=== PATIENT | male | born 1940 | race Two or more races ===

== ENCOUNTER 2024-08-27 13:55 | Inpatient (IN) | payer MEDICARE, MEDICAID, SELFPAY ==
[2024-08-27 13:56] VITALS: BMI 29.5
[2024-08-27 15:09] VITALS: BP 138/76; PULSE 87; RESP 18; TEMP 37.3; O2SAT 99
--- NOTE | 2024-08-27 15:13 | XR_ITS ---
Examination: CT abdomen and pelvis without contrast. Coronal 3-D reconstructions. Sagittal 2-D reconstructions. Date and time of exam:September 06, 2024 1542 hours INDICATIONS: Abdominal pain and dysuria beginning 3 weeks ago COMPARISON: February 10, 2019 CTDI: vol (mGy): 9.88 DLP: (mGycm): 636 Technique: Axial images of the abdomen have been obtained, 3 mm slice thickness Intravenous contrast material has not been administered. Low dose protocols were performed. One or more of the following dose reduction techniques were used; automated exposure control, adjustment of the mA and/or KV according to patient size, use of iterative reconstruction technique. 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
--- NOTE | 2024-08-27 15:13 | PD.EDRME ---
Rapid Medical Screening Exam RME Arrival date/time: 08/27/24 13:55 84-year-old male with history of Parkinson's disease presents to the emergency department complains of dysuria and hematuria with difficulty urinating Chief Complaint: Urogenital-Male Time Seen by Provider: 08/27/24 14:04
[2024-08-27 15:25] LABS: Collection Type, Urine Clean Catch; Squamous Epithelial Cell,Urine 0 /hpf (0-5); WBC,Urine 0 /hpf (0-5)
[2024-08-27 15:43] LABS: RBC,Urine 6690 /hpf (0-3)
[2024-08-27 15:45] LABS: Bilirubin,Urine Negative (Negative); Blood,Urine 3+ (Negative); Color,Urine Dark-Brown (Lt Yel-Yel); Culture Indicated,Urine Not Indicated; Glucose, Urine Negative (Negative); Ketones,Urine Negative (Negative); Leukocyte Esterase,Urine Positive (Negative); Nitrite,Urine Negative (Negative); PH,Urine 6.5 (5.0-7.0); Protein,Urine 2+ (Neg - Trace); Specific Gravity,Urine 1.019 (1.001-1.035); Urobilinogen,Urine Negative mg/dL (0.0-1.0)
[2024-08-27 15:49] LABS: Clarity,Urine Turbid (Clear/Hazy)
[2024-08-27 16:13] VITALS: BP 150/85; PULSE 97; RESP 14; TEMP 37.1; O2SAT 96
[2024-08-27 16:17] LABS: Basophils # (Auto) 0.1 Thou/mm3 (0.0-0.2); Basophils % (Auto) 1 % (0-2.5); Eosinophils # (Auto) 0.1 Thou/mm3 (0.0-0.5); Eosinophils % (Auto) 1 % (0-10); Hematocrit 46.3 % (41.0-53.0); Hemoglobin 16.9 g/dL (13.5-16.0); Immature Granulocytes % (Auto) 0 % (0-0); Immature Granulocytes Auto 0.03 Thou/mm3 (0.00-0.00); Lymphocytes # (Auto) 0.9 Thou/mm3 (1.0-4.8); Lymphocytes % (Auto) 8 % (10-50); Mean Corpuscular HGB Conc 36.5 g/dl (31.0-37.0); Mean Corpuscular Hemoglobin 29.8 pg (25.0-35.0); Mean Corpuscular Volume 82 fL (80-100); Monocytes # (Auto) 0.9 Thou/mm3 (0.0-0.8); Monocytes % (Auto) 9 % (0-12); Neutrophils # (Auto) 8.3 Thou/mm3 (1.8-7.7); Neutrophils % (Auto) 81 % (37-80); Nucleated Red Blood Cell % 0 /100 WBC (0); Platelet Count 291 Thou/mm3 (140-440); RDW Standard Deviation 40.3 fL (35.1-43.9); Red Blood Count 5.67 Miln/mm3 (4.50-5.90); White Blood Count 10.3 Thou/mm3 (3.8-10.6)
[2024-08-27 16:36] LABS: Alanine Aminotransferase 65 U/L (10-49); Albumin, Serum 4.4 gm/dL (3.4-4.8); Albumin/Globulin Ratio 1.2 (1.2-2.2); Alkaline Phosphatase 115 U/L (46-116); Anion Gap 11 (7-16); Aspartate Amino Transferase 36 U/L (0-34); BUN/Creatinine Ratio 14 Ratio (12-20); Bilirubin,Total 1.1 mg/dL (0.3-1.2); Blood Urea Nitrogen 18 mg/dL (9-23); Calcium 9.3 mg/dL (8.3-10.6); Calcium (Corrected) 9.3 mg/dL (8.5-10.1); Carbon Dioxide 26.5 mMol/L (20.0-31.0); Chloride 97 mMol/L (98-107); Creatinine (Component) 1.3 mg/dL (0.6-1.3); Estimated Creatinine Clearance 48.8 mL/min (>60); Globulin 3.6 gm/dL (2.3-3.5); Glucose 121 mg/dL (74-106); INR 1.1 (0.9-1.3); Lipase 34 U/L (12-53); Osmolality,Calculated 271 (275-295); Partial Thromboplastin Time 26.3 Seconds (22.0-36.0); Prothrombin Time 11.9 Seconds (9.0-12.2); Sodium 134 mMol/L (136-145); eGFR 55 See Note
--- NOTE | 2024-08-27 17:07 | EDNOTE_ITS ---
ED Male Genitalurinary RME/HPI General Chief complaint: Urogenital-Male Stated complaint: URINATING BLOOD Time Seen by Provider: 08/27/24 14:04 Arrival date/time: 08/27/24 13:55 RME / HPI RME / HPI Narrative: 08/27/24 13:55 84-year-old male with history of Parkinson's disease presents to the emergency department complains of dysuria and hematuria with difficulty urinating DR. MENDEZ MAIN ED EVALUATION: 84 year old male presents to the Emergency Department accompanied by his with complaint of hematuria onset 2 months and worsening. Symptoms are moderate. Denies any other symptoms at this time. PMHx: Has history of prostate surgery 8 years ago at [facility]. Also, had a CT scan and was told he had x3 hernias. Depression on sertraline but discontinued because he read the medication caused Parkinson's and now takes Trintellix. Parkinson's disease. Social Hx: No tobacco, alcohol, or substance use. Related Data Home Medications ?Medication ?Instructions ?Recorded ?Confirmed buspirone 7.5 mg tablet mg 08/28/24 carbidopa 25 mg-levodopa 100 mg tab 08/28/24 tablet chlorthalidone 25 mg tablet 25 mg PO QDAY 08/28/2403/17 doxazosin 4 mg tablet mg 08/28/24 sertraline 50 mg tablet mg PO Q24H 08/28/24 benztropine 0.5 mg tablet 0.5 mg PO QDAY 08/29/2403/17 Held on 08/29/24. Instructions: per pt held Allergies Allergy/AdvReac Type Severity Reaction Status Date / Time No Known Allergies Allergy Verified 08/27/24 13:55 Review of Systems Review of Systems Systems Reviewed: All systems reviewed, normal except as documented Narrative Review of Systems: GEN: No fever, no chills, no weight loss EYES: No discharge, no visual changes, no pain HEENT: No ear pain, no congestion, no sore throat PULM: No shortness of breath, no cough, no congestion CV: No chest pain, no dyspnea on exertion, no palpitations GI: No nausea, no vomiting, no diarrhea, no pain, no constipation : + hematuria; no frequency, no urgency and no dysuria MUSC/SKEL: No joint pain, no back pain SKIN: No rash PSYCH: No hallucinations, no depression HEME/LYMPH: No easy bleeding or bruising tendencies NEURO: No weakness, no headache Past Medical History Social History SMOKING STATUS: Never smoker SUBSTANCE USE: does not use ALCOHOL: Never ED Exam Narrative Physical exam: GENERAL APPEARANCE: alert and oriented x 4, well-developed, well-nourished, no acute distress; tremulous, history of Parkinson's disease VITALS: All vitals were reviewed and the pulse ox is 96% on room air, which is normal according to my interpretation. HEENT: Normocephalic, atraumatic; pupils equal, round, reactive to light; EOMI; mucous membranes pink, moist; oropharynx clear NECK: Supple LUNGS: CTABL; no wheezes, no rales, no rhonchi HEART: Regular rate, regular rhythm; normal S1, S2; no murmurs ABDOMEN: non distended; normal BS; soft, no tenderness, no guarding, no rebound; no masses, no organomegaly, no hernia BACK: no CVA tenderness EXTREMITIES: atraumatic; no edema NEUROLOGIC: tremulous, history of Parkinson's disease; awake; alert and oriented x4; cranial nerves II-XII grossly intact; no focal sensory or motor deficits PSYCHIATRIC: appropriate mood and affect SKIN: warm, dry, normal color; no rashes Course Quality Measures none Orders Category Date Time Status Patient Condition Routine Admission 08/28/24 02:[address] in Observation Status Routine Admission 08/28/24 02:24 Active Bed to Chair in A.M. Daily Care 08/29/24 09:00 Ordered Continuous Bladder Irrigation QSHIFT Care 08/27/24 16:07 Completed Decision to Admit X1 Care 08/28/24 02:33 Completed Flu & Pneumonia Vaccine Screen ONCE Care 08/28/24 02:25 Completed Phillip [Urinary Catheter] X1 Care 08/27/24 16:42 Active Miscellaneous Nursing Order NOW Care 08/28/24 02:31 Active Notify provider NEEDED Care 08/28/24 02:23 Active Sequential Compression Device QSHIFT Care 08/28/24 02:25 Active Wound Care NOW Care 08/28/24 10:33 Active Diet Regular Diet 08/28/[address] abdomen pelvis wo con Stat Exams 08/27/24 15:13 Completed A1C [Glycohemoglobin w (eAG)] AM DRAW Lab 08/28/24 04:52 Completed CBC AM DRAW Lab 08/28/24 04:52 Completed CBC AM DRAW Lab 08/29/24 05:45 Completed CBC AM DRAW Lab 08/30/24 05:19 Completed CBC Stat Lab 08/27/24 15:57 Completed Comprehensive Metabolic Panel AM DRAW Lab 08/28/24 04:52 Completed Comprehensive Metabolic Panel AM DRAW Lab 08/29/24 05:45 Completed Comprehensive Metabolic Panel AM DRAW Lab 08/30/24 05:19 Completed Comprehensive Metabolic Panel Stat Lab 08/27/24 15:57 Completed Hepatitis Acute Panel Routine Lab 08/28/24 02:30 Completed Lipase Stat Lab 08/27/24 15:57 Completed Magnesium AM DRAW Lab 08/28/24 04:52 Completed Magnesium AM DRAW Lab 08/29/24 05:45 Completed Magnesium AM DRAW Lab 08/30/24 05:19 Completed PT [Prothrombin Time with INR] Stat Lab 08/27/24 15:57 Completed PTT [Partial Thromboplastin Time] Stat Lab 08/27/24 15:57 Completed Phosphorous AM DRAW Lab 08/29/24 05:45 Completed Phosphorous AM DRAW Lab 08/30/24 05:19 Completed Phosphorous AM DRAW Lab 08/31/24 05:00 Ordered Renal Function Panel Routine Lab 08/28/24 14:13 Completed UA, C/S IF [Urinalysis, C/S if Indicated] Stat Lab 08/27/24 15:14 Completed Urine Culture Routine Lab 08/28/24 17:00 Completed Acetaminophen Tab [Tylenol Tab] Med 08/28/24 02:25 Active 650 mg PO Q6H PRN Acetaminophen Tab [Tylenol Tab] Med 08/28/24 02:25 Active 650 mg PO Q6H PRN KCL 10% Liq UDC 15 ML Med 08/27/24 18:56 Discontinued 40 meq PO X1 ONE KCL 10% Liq UDC 15 ML Med 08/28/24 02:29 Discontinued 40 meq PO X1 ONE Ketoconazole Cr 2% [Nizoral Cr 2%] Med 08/28/24 14:15 Active See Dose Instructions TOP QDAY LORazepam [Ativan Inj] Med 08/28/24 00:16 Discontinued 0.5 mg IVP X1 ONE LORazepam [Ativan Inj] Med 08/28/24 02:18 Discontinued 1 mg IVP X1 ONE Magnesium Sulfate 2 GM Ivpb [Magnesium Sulfate Ivpb] Med 08/29/24 08:15 Discontinued 2 gm in 50 ml IV X1 Melatonin Med 08/28/24 21:00 Active 3 mg PO HS Melatonin Med 08/28/24 20:05 Discontinued 5 mg PO HS Morphine Inj Med 08/28/24 02:40 Discontinued 4 mg IVP X1 ONE Ondansetron Inj [Zofran Inj] Med 08/28/24 02:25 Active 4 mg IV Q6H PRN Pantoprazole [Protonix] Med 08/28/24 09:00 Active 40 mg PO QDAY Potassium Chloride [K-Dur] Med 08/28/24 15:00 Discontinued 20 meq PO X1 ONE Potassium Chloride [K-Dur] Med 08/28/24 08:17 Discontinued 40 meq PO X1 ONE Potassium Chloride [K-Dur] Med 08/29/24 08:15 Discontinued 40 meq PO X1 ONE Propranolol HCl [Inderal] Med 08/29/24 11:00 Active 10 mg PO BID Ringers Lactated 1000 ml [Lactated Ringers] 1,000 ml Med 08/28/24 02:30 Discontinued IV 75 mls/hr Sertraline HCl [Zoloft] Med 08/29/24 21:00 Discontinued 50 mg PO HS Sodium Chloride 0.9% 1000 ml [Ns] 1,000 ml Med 08/28/24 01:44 Discontinued IV 999 mls/hr amLODIPine BESYLATE [Norvasc] Med 08/30/24 09:00 Discontinued 5 mg PO QDAY cefTRIAXone [Rocephin] 1,000 mg Med 08/28/24 21:00 Discontinued SODIUM CHLORIDE 0.9% (Popper) [Ns 0.9% (P)] 50 ml IV QPM cefTRIAXone [Rocephin] 1,000 mg Med 08/28/24 02:45 Discontinued SODIUM CHLORIDE 0.9% (Popper) [Ns 0.9% (P)] 50 ml IV X1 hydrALAZINE INJ [Apresoline Inj] Med 08/28/24 03:23 Active 10 mg IV Q2H PRN oxyCODONE/APAP 5/325 [Percocet 5/325] Med 08/28/24 02:25 Active 1 tab PO Q6H PRN Code Status Routine Oth 08/28/24 02:23 Ordered Oxygen Delivery PRN RT 08/28/24 02:25 Active Vital Signs Vital signs: Vital Signs Temperature 99.2 F 08/27/24 15:09 Pulse Rate 87 08/27/24 15:09 Respiratory Rate 18 08/27/24 15:09 Blood Pressure 138/76 H 08/27/24 15:09 Pulse Oximetry (%) 99 08/27/24 15:09 Oxygen Delivery Method Room Air 08/27/24 15:09 Urogenital - Male MDM Narrative MDM Narrative:: I, Pilar Cabrera, am scribing for and in the presence of Dr. Mendez. Patient data External records reviewed:: None (no previous visits) Clinical information provided by:: patient Social determinants that could affect healthcare access:: none Patient has the following chronic illnesses:: Has history of prostate surgery 8 years ago at [facility]. Also, had a CT scan and was told he had x3 hernias. Depression on sertraline but discontinued because he read the medication caused Parkinson's and now takes Trintellix. Parkinson's disease. How is presenting disease/condition affected by chronic disease/condition?: exacerbated by Evaluation data The following diagnostics were reviewed and interpreted by me:: lab results and radiology exam(s) Lab and/or radiology exams considered but not ordered:: none Interpretation Summary: Procedure(s): CT abdomen pelvis wo [facility] Accession Number(s): [id number] cc: Osmar (KING),Yvan MALIK; Tristen Dudley MD~ Examination: CT abdomen and pelvis without contrast. Coronal 3-D reconstructions. Sagittal 2-D reconstructions. Date and time of exam:September 06, 2024 1542 hours INDICATIONS: Abdominal pain and dysuria beginning 3 weeks ago COMPARISON: February 10, 2019 CTDI: vol (mGy): 9.88 DLP: (mGycm): 636 Technique: Axial images of the abdomen have been obtained, 3 mm slice thickness Intravenous contrast material has not been administered. Low dose protocols were performed. One or more of the following dose reduction techniques were used; automated exposure control, adjustment of the mA and/or KV according to patient size, use of iterative reconstruction technique. 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 Dictated By: Tristen Dudley MD Medications / Prescriptions Medications or Prescriptions considered but not ordered:: none Medication administrations:: Medication Administration History Acetaminophen (Acetaminophen 325 Mg Tablet) 650 mg PO Q6H PRN PRN Reason: Fever >101.5 Stop: 09/27/24 02:24 Acetaminophen (Acetaminophen 325 Mg Tablet) 650 mg PO Q6H PRN PRN Reason: PAIN SCALE 1-3 (mild Stop: 09/27/24 02:24 Finasteride (Finasteride 5 Mg Tablet) 5 mg PO QDAY [facility] Stop: 09/29/24 13:29 Last Admin: 08/30/24 14:34 Dose: 5 mg Documented By: TD Hydralazine HCl (Hydralazine Inj 20 Mg/Ml Vial) 10 mg IV Q2H PRN PRN Reason: SBP > 180mmHg Stop: 09/27/24 03:29 Ketoconazole (Ketoconazole Cr 2% 15 Gm Tube) 0 gm TOP QDAY [facility] Stop: 09/27/24 14:14 Last Admin: 08/30/24 08:41 Dose: 1 applicatio Documented By: Admin: 08/29/24 08:54 Dose: 1 applicatio Documented By: Admin: 08/28/24 17:51 Dose: 1 applicatio Documented By: LH Melatonin (Melatonin 3 Mg Tablet) 3 mg PO HS [facility] Stop: 09/27/24 20:59 Last Admin: 08/29/24 20:29 Dose: 3 mg Documented By: Admin: 08/28/24 23:02 Dose: 3 mg Documented By: RB Ondansetron HCl (Ondansetron Inj 2 Mg/Ml Inj 2 Ml) 4 mg IV Q6H PRN; Protocol PRN Reason: NAUSEA OR VOMITING Stop: 09/27/24 02:24 Oxycodone/Acetaminophen (Oxycodone/Apap 5/325 Tablet) 1 tab PO Q6H PRN PRN Reason: PAIN SCALE 4-6 (Moderate Stop: 09/02/24 02:24 Last Admin: 08/30/24 00:08 Dose: 1 tab Documented By: Admin: 08/28/24 23:02 Dose: 1 tab Documented By: RB Pantoprazole Sodium (Pantoprazole 40 Mg Tablet) 40 mg PO QDAY ANNAMARIE Stop: 09/27/24 08:59 Last Admin: 08/30/24 08:40 Dose: 40 mg Documented By: Admin: 08/29/24 08:53 Dose: 40 mg Documented By: Admin: 08/28/24 10:54 Dose: 40 mg Documented By: LH Propranolol HCl (Propranolol 10 Mg Tablet) 10 mg PO BID ANNAMARIE Stop: 09/28/24 10:59 Last Admin: 08/30/24 08:40 Dose: 10 mg Documented By: Admin: 08/29/24 20:29 Dose: 10 mg Documented By: Admin: 08/29/24 14:40 Dose: 10 mg Documented By: LT Quetiapine Fumarate (Quetiapine Fumarate 25 Mg Tablet) 12.5 mg PO HS ANNAMARIE Stop: 09/29/24 20:59 Sertraline HCl (Sertraline Hcl 25 Mg Tablet) 50 mg PO QDAY ANNAMARIE Stop: 09/29/24 08:59 Last Admin: 08/30/24 08:40 Dose: 50 mg Documented By: TD Tamsulosin HCl (Tamsulosin Hcl 0.4 Mg Capsule) 0.4 mg PO QDAY ANNAMARIE Stop: 09/29/24 15:14 Last Admin: 08/30/24 15:39 Dose: 0.4 mg Documented By: TD Discontinued Medications Amlodipine Besylate (Amlodipine Besylate 5 Mg Tablet) 5 mg PO QDAY ANNAMARIE Stop: 09/29/24 08:59 Sodium Chloride (Ns) 1,000 mls @ 999 mls/hr IV .Q1H1M ONE Stop: 08/28/24 02:44 Last Infusion: 08/28/24 03:23 Dose: Infused Documented By: Admin: 08/28/24 02:25 Dose: 999 mls/hr Documented By: CB Lactated Ringer's (Lactated Ringers) 1,000 mls @ 75 mls/hr IV .[id number] ONE Stop: 08/28/24 15:49 Last Admin: 08/28/24 02:57 Dose: 75 mls/hr Documented By: GLORIA Ceftriaxone Sodium 1,000 mg/ (Sodium Chloride) 50 mls @ 100 mls/hr IV QPM ANNAMARIE Stop: 09/04/24 20:59 Last Admin: 08/29/24 20:28 Dose: 100 mls/hr Documented By: Infusion: 08/28/24 20:49 Dose: Infused Documented By: Admin: 08/28/24 20:19 Dose: 100 mls/hr Documented By: RB Ceftriaxone Sodium 1,000 mg/ (Sodium Chloride) 50 mls @ 100 mls/hr IV X1 ONE Stop: 08/28/24 03:14 Last Infusion: 08/28/24 04:59 Dose: Infused Documented By: Admin: 08/28/24 03:48 Dose: 100 mls/hr Documented By: GLORIA Magnesium Sulfate (Magnesium Sulfate Ivpb) 2 gm in 50 mls @ 25 mls/hr IV X1 ONE Stop: 08/29/24 10:14 Last Admin: 08/29/24 08:52 Dose: 25 mls/hr Documented By: Lorazepam (Lorazepam 2 Mg/Ml Vial) 0.5 mg IVP X1 ONE Stop: 08/28/24 00:17 Last Admin: 08/28/24 00:21 Dose: 0.5 mg Documented By: GLORIA Lorazepam (Lorazepam 2 Mg/Ml Vial) 1 mg IVP X1 ONE Stop: 08/28/24 02:19 Last Admin: 08/28/24 02:26 Dose: 1 mg Documented By: CB Melatonin (Melatonin 3 Mg Tablet) 5 mg PO HS [facility] Stop: 09/27/24 20:04 Morphine Sulfate (Morphine Sulf Inj 10 Mg/Ml Vial) 4 mg IVP X1 ONE Stop: 08/28/24 02:41 Last Admin: 08/28/24 02:57 Dose: 4 mg Documented By: KD Potassium Chloride (Potassium Chloride 10% 20 Meq/15 Ml Udc) 40 meq PO X1 ONE Stop: 08/27/24 18:57 Last Admin: 08/27/24 19:28 Dose: 40 meq Documented By: KD Potassium Chloride (Potassium Chloride 10% 20 Meq/15 Ml Udc) 40 meq PO X1 ONE Stop: 08/28/24 02:30 Last Admin: 08/28/24 02:58 Dose: 40 meq Documented By: KD Potassium Chloride (Potassium Chloride 20 Meq Tabcr) 40 meq PO X1 ONE Stop: 08/28/24 08:18 Last Admin: 08/28/24 10:54 Dose: 40 meq Documented By: LH Potassium Chloride (Potassium Chloride 20 Meq Tabcr) 20 meq PO X1 ONE Stop: 08/28/24 15:01 Last Admin: 08/28/24 14:55 Dose: 20 meq Documented By: LH Potassium Chloride (Potassium Chloride 20 Meq Tabcr) 40 meq PO X1 ONE Stop: 08/29/24 08:16 Last Admin: 08/29/24 08:53 Dose: 40 meq Documented By: LT Potassium Chloride (Potassium Chloride 20 Meq Tabcr) 40 meq PO X1 ONE Stop: 08/30/24 08:28 Last Admin: 08/30/24 08:39 Dose: 40 meq Documented By: TD Sertraline HCl (Sertraline Hcl 25 Mg Tablet) 50 mg PO HS ANNAMARIE Stop: 09/28/24 20:59 see above Consultations Consultation(s) initiated? (list below): No Diagnosis Urogenital Male Differential Diagnosis: urinary tract infection and other (hematuria, surgery complications) Most likely diagnosis given after review of the tests above:: No final disposition plan at this time, still pending diagnostic tests. Patient signout to the shift superintendent caustic cresylate provider. Admission Indicated Admission indicated?: not indicated Admission Request Was there a request for admission?: No Disposition Plan Disposition Plan: other (specify) (Patient signout to the shift superintendent caustic cresylate provider. ) Discharge Plan Plan Patient Disposition: Other Care w/in Hosp ([facility]) Problem List Clinical Impression: Hematuria of unknown etiology, Hypokalemia
[2024-08-27 18:05] VITALS: BP 124/77; PULSE 85; RESP 15; TEMP 36.9; O2SAT 98
--- NOTE | 2024-08-27 18:13 | PD.EDADDENDU ---
Emergency Room Addendum <Lianne Guadarrama - Last Filed: 08/28/24 00:37> Addendum Narrative: I took over the care from Dr. Mendez at 6 PM on 08/27/2024, see her notes for complete H&P and ED course. I reviewed all diagnostic test results. At this point, diagnoses include Treatment here included Significant improvemeny 2321: Spoke with [facility]. Awaiting callback at this time. 0028: Spoke with Dr. Castro, urologist from [facility]. Recommends Based on my best medical judgment, made decision no further evaluation or treatment indicated at this time. Patient understands and agrees to the discharge instructions customized and printed, see below. <Bob Perez MD - Last Filed: 08/28/24 02:46> Addendum Narrative: I took over the care from Dr. Mendez at 6 PM on 08/27/2024, see her notes for complete H&P and ED course. I reviewed all diagnostic test results. My review of the abdominal CT report is no acute findings. Blood tests and urine tests unremarkable, except K 3.0 and severe hematuria. At this point, diagnoses include: Severe hematuria and hypokalemia. Treatment here included: IVF, CBI, KCl. Gross hematuria not improved. 2321: Spoke with [facility]. Awaiting callback at this time. 0028: Spoke with Dr. Castro, urologist from [facility]. Discussed about the presentation and exam and diagnostics and treatments here.? And need of further care in there.? Declined to accept the patient. Recommended admission here for 48 hour CBI. If still not better, he will accept the patient. I discussed the case with our hospitalist.? About the presentation and exam and diagnostics and treatments here.? And need of further care in the hospital.? Will accept the patient. Patient requested help with sleep and pain. Ativan and morphine given.
[2024-08-27] MEDS: POTASSIUM CHLORIDE 10% 20 MEQ/15 ML UDC 40 MEQ PO (19:28)
[2024-08-27 22:00] VITALS: BP 124/74; PULSE 74; RESP 9; O2SAT 96
[2024-08-27 22:10] VITALS: BP 124/74; PULSE 75; RESP 15; TEMP 36.8; O2SAT 95
[2024-08-27 23:01] VITALS: BP 112/62; PULSE 75; RESP 14; O2SAT 96
[2024-08-28] VITALS (16 sets, daily range): BP systolic 104–146; BP diastolic 49–78; PULSE 68–92; RESP 0–94; TEMP 36.2–37.3; O2SAT 79–100
[2024-08-28] MEDS: LORazepam 2 MG/ML VIAL 0.5 MG IVP (00:21)
--- NOTE | 2024-08-28 01:27 | PC.LAC ---
[facility] CONTACTED DENIED NO NEUROLOGY HEADEND TECHNICIAN. [facility]. 0028 [facility] DENIES PT AT THIS TIME. REASON GIVEN TO DR LUEVANO. 0120 [facility] CONTACTED PKT SENT. [facility] REQUESTING WE CONTINUE TO TRY OTHER HOSPITALS. STATE THEY ARE CASE BY CASE AT THIS TIME.
[2024-08-28] MEDS: SODIUM CHLORIDE 0.9% 1000 ML 1,000 ML 999 ML IV (02:25)
[2024-08-28] MEDS: LORazepam 2 MG/ML VIAL 1 MG IVP (02:26)
--- NOTE | 2024-08-28 02:55 | ESHP_ITS ---
Documentation for date of: 08/28/24 HPI History of Present Illness Chief complaint: Hematuria for 2-month History of present illness: HPI: An 84-year-old male patient known case of hypertension, Parkinson's disease, depression, BPH status post surgical intervention 15 years ago presented to the ED due to progressively worsening hematuria. Patient reported that he noticed blood in his urine 2 months. He mentions that it was trace of blood in his urine however it continued to worsen over time until it become frankly blood associated with clots. Patient reported that he has some mild pain whenever he passes blood through his urethra. Patient denied any nausea, vomiting, fever, or abdominal pain. Patient denied any loss of weight. He reported that he has not seen a urologist since his prostate procedures 15 years ago. However he reported that he has seen his primary care physician 1 month ago. Home medications: Pending med ED course: His vitals were stable with blood pressure of 138/76 and normal other vital signs. His hemoglobin is 16.9, WBC borderline at 10.3, platelets 291, PTT and PT within normal limits, potassium was significantly low at 3.0 and sodium was 134, his serum creatinine is 1.3 and there was no previous serum creatinine results to compare, his EGFR is 55. His blood glucose of 121, noticed to have AST and ALT of 36 and 65 respectively normal alk phos and total bilirubin, his urine was positive to protein, +3 urine in the blood with urine RBCs of 6690/hpf. Continuous bladder irrigation was initiated by the ED team, they consulted Dr. Castro and [facility] in [place] and she recommended continue continuous bladder irrigation for 48 hours if his symptoms improve patient can be discharged home and follow-up in outpatient settings, if his hematuria did not improve patient will be transferred to Dr. Castro to [facility] in [place] and he mentioned that he will accept the patient PMH: As above Social hx: Alcohol: Denied Tobacco: Denied Illicit drugs: Denied Allergies: No known allergies Review of Systems Review of Systems Systems Reviewed: All systems reviewed, normal except as documented Exam Vital Signs Temp Pulse Resp BP Pulse Ox O2 Del Method 98.4 F 78 18 137/78 H 95 Room Air 08/28/24 01:27 08/28/24 01:27 08/28/24 01:27 08/28/24 01:27 08/28/24 01:27 08/28/24 01:27 Narrative Exam GEN: AOx3, Luxembourgish speaker, able to speak full sentences, with urinal bag pink in color, three-way's catheter with continuous bladder irrigation functioning HEENT: NC/AC, oral mucosa moist, neck supple CVS: RRR, systolic murmur was heard, muffled S1-S2 present, no murmurs appreciated RESP: CTAB GI: soft,non distended, non tender, NBS MSK: able to move all 4 limbs, no lower extremity edema SKIN: warm and dry ROLLED HAM LACER: CN II-XII and Sensation grossly intact. Results: Labs 08/28/24 04:52 08/28/24 04:52 Labs: Short CBC 08/27/24 Range/Units 15:57 WBC 10.3 (3.8-10.6) Thou/mm3 Hgb 16.9 H (13.5-16.0) g/dL Hct 46.3 (41.0-53.0) % Plt Count 291 (140-440) Thou/mm3 BMP 08/27/24 15:57 Sodium 134 L Potassium 3.0 L Chloride 97 L Carbon Dioxide 26.5 BUN 18 Creatinine 1.3 Glucose 121 H Calcium 9.3 Liver Function 08/27/24 Range/Units 15:57 Total Bilirubin 1.1 (0.3-1.2) mg/dL AST 36 H (0-34) U/L ALT 65 H (10-49) U/L Alkaline Phosphatase 115 (46-116) U/L Albumin 4.4 (3.4-4.8) gm/dL Urine 08/27/24 Range/Units 15:14 Urine Color Dark-Brown (Lt Yel-Yel) Urine Clarity Turbid A (Clear/Hazy) Urine pH 6.5 (5.0-7.0) Ur Specific [place] 1.019 (1.001-1.035) Urine Protein 2+ A (Neg - Trace) Urine Glucose (UA) Negative (Negative) Quality Measures Quality Measures none Advance care planning discussed with:: patient Medications Home Medications and Allergies Allergies Allergy/AdvReac Type Severity Reaction Status Date / Time No Known Allergies Allergy Verified 08/27/24 13:55 Visit Medications Acetaminophen (Acetaminophen 325 Mg Tablet) 650 mg PO Q6H PRN PRN Reason: Fever >101.5 Stop: 09/27/24 02:24 Acetaminophen (Acetaminophen 325 Mg Tablet) 650 mg PO Q6H PRN PRN Reason: PAIN SCALE 1-3 (mild Stop: 09/27/24 02:24 Lactated Ringer's (Lactated Ringers) 1,000 mls @ 75 mls/hr IV .[id number] ONE Stop: 08/28/24 15:49 Ceftriaxone Sodium 1,000 mg/ (Sodium Chloride) 50 mls @ 100 mls/hr IV QDAY ANNAMARIE Stop: 09/04/24 02:28 Ceftriaxone Sodium 1,000 mg/ (Sodium Chloride) 50 mls @ 100 mls/hr IV X1 ONE Stop: 08/28/24 03:14 Ondansetron HCl (Ondansetron Inj 2 Mg/Ml Inj 2 Ml) 4 mg IV Q6H PRN; Protocol PRN Reason: NAUSEA OR VOMITING Stop: 09/27/24 02:24 Oxycodone/Acetaminophen (Oxycodone/Apap 5/325 Tablet) 1 tab PO Q6H PRN PRN Reason: PAIN SCALE 4-6 (Moderate Stop: 09/02/24 02:24 Discontinued Medications Sodium Chloride (Ns) 1,000 mls @ 999 mls/hr IV .[id number] ONE Stop: 08/28/24 02:44 Last Admin: 08/28/24 02:25 Dose: 999 mls/hr Lorazepam (Lorazepam 2 Mg/Ml Vial) 0.5 mg IVP X1 ONE Stop: 08/28/24 00:17 Last Admin: 08/28/24 00:21 Dose: 0.5 mg Lorazepam (Lorazepam 2 Mg/Ml Vial) 1 mg IVP X1 ONE Stop: 08/28/24 02:19 Last Admin: 08/28/24 02:26 Dose: 1 mg Morphine Sulfate (Morphine Sulf Inj 10 Mg/Ml Vial) 4 mg IVP X1 ONE Stop: 08/28/24 02:41 Potassium Chloride (Potassium Chloride 10% 20 Meq/15 Ml Udc) 40 meq PO X1 ONE Stop: 08/27/24 18:57 Last Admin: 08/27/24 19:28 Dose: 40 meq Potassium Chloride (Potassium Chloride 10% 20 Meq/15 Ml Udc) 40 meq PO X1 ONE Stop: 08/28/24 02:30 Assessment & Plan Plan Summary: An 84-year-old male patient known case of hypertension, Parkinson's disease, depression, BPH status post surgical intervention 15 years ago presented to the ED due to progressively worsening hematuria. Patient reported that he noticed blood in his urine 2 months. Patient was admitted for severe hematuria. Assessment and plan #Hematuria #History of BPH #UTI #Urinary bladder cancer rule out Patient vital stable, hemoglobin stable at 16.7, WBC borderline at 10.2, no fever or chills however CT scan showed perinephric stranding and urinary bladder wall thickened Patient has been having hematuria for the past 2 months associated with clots, hemoglobin stable. Plan ? Admit to MedSurg ? Consider consulting in-house urology ? start the patient on ceftriaxone ? Continue CBI ? Pain management as per protocol ? Consider resuming his BPH medications upon discharge and removal of the catheter #Hypokalemia On presentation patient potassium level was 3.0, he was given 1 dose of 40 mill equivalent of potassium p.o. Plan ? Replete potassium with another dose of 40 mEq of potassium p.o. ? Daily BMP #Elevated liver enzymes Patient was noticed to have elevated AST and ALT 36 and 65 respectively, CT scan did not show on the liver lesion or irregularity on liver contour Alk phos and total bilirubin are within normal limits Plan ? Acute hepatitis panel was ordered follow-up in #History of Parkinson's disease Plan ? Resume his home medications after med rec is done #History of hypertension Plan ? Resume home medication after med reconciliation is done ? Start the patient on hydralazine 10 mg IV as needed every 2 hours if SBP more than 180 mmHg #History of depression Plan ? Resume home medication upon med reconciliation Hospital Maintenance: FEN: Regular diet DVT ppx: SCD GI ppx: Protonix IV lines: PIV Phillip: Yes Code status: Full code Dispo: MedSurg - Patient's plan and care discussed with my attending, Dr. Charles Hillman MD Internal Medicine PGY-2 Attending Provider Attestation/Addendum 85-year-old male with multiple comorbidities including hypertension, BPH status post surgical intervention/TURP who presented to the ER with hematuria. Patient states that he has been having hematuria that has been going on and off for the past 2 months however past couple days has been noting [place] blood with clots and subsequently prompted an ER visit. Furthermore, ER physician attempted to transfer the patient to [facility] however did not recommend transfer and recommended patient to be admitted to our facility with continuous bladder irrigation and if patient was to worsen then at that point they agreed to take the patient. As a result, plan to start continuous bladder irrigation and admit the patient to our facility. Of note, hemoglobin stable at this point. Unknown causes of hematuria however patient denies being on anticoagulation and could be having an underlying malignancy.I reviewed above note and agree with findings and plans. I have also personally examined the patient with medicine team and went over assessment and plan with medical team including record label intern and resident physician.
[2024-08-28] MEDS: MORPHINE SULF INJ 10 MG/ML VIAL 4 MG IVP (02:57)
[2024-08-28] MEDS: RINGERS LACTATED 1000 ML 1,000 ML 75 ML IV (02:57)
[2024-08-28] MEDS: POTASSIUM CHLORIDE 10% 20 MEQ/15 ML UDC 40 MEQ PO (02:58)
[2024-08-28] MEDS: cefTRIAXone 1,000 MG in SODIUM CHLORIDE 0.9% (Popper) 50 ML 100 MG IV ×2 (03:48→20:19)
[2024-08-28 04:57] LABS: Basophils # (Auto) 0.1 Thou/mm3 (0.0-0.2); Basophils % (Auto) 0 % (0-2.5); Eosinophils # (Auto) 0.1 Thou/mm3 (0.0-0.5); Eosinophils % (Auto) 1 % (0-10); Hematocrit 42.2 % (41.0-53.0); Hemoglobin 15.1 g/dL (13.5-16.0); Immature Granulocytes % (Auto) 0 % (0-0); Immature Granulocytes Auto 0.03 Thou/mm3 (0.00-0.00); Lymphocytes # (Auto) 1.1 Thou/mm3 (1.0-4.8); Lymphocytes % (Auto) 9 % (10-50); Mean Corpuscular HGB Conc 35.8 g/dl (31.0-37.0); Mean Corpuscular Hemoglobin 29.6 pg (25.0-35.0); Mean Corpuscular Volume 83 fL (80-100); Monocytes # (Auto) 1.1 Thou/mm3 (0.0-0.8); Monocytes % (Auto) 9 % (0-12); Neutrophils # (Auto) 9.8 Thou/mm3 (1.8-7.7); Neutrophils % (Auto) 81 % (37-80); Nucleated Red Blood Cell % 0 /100 WBC (0); Platelet Count 242 Thou/mm3 (140-440); RDW Standard Deviation 41.9 fL (35.1-43.9); White Blood Count 12.2 Thou/mm3 (3.8-10.6)
[2024-08-28 05:15] LABS: Glucose Estimated Average 111 mg/dL (80-131); Hemoglobin A1C 5.5 % Hgb (4.8-6.0)
[2024-08-28 05:28] LABS: Alanine Aminotransferase 54 U/L (10-49); Albumin, Serum 3.8 gm/dL (3.4-4.8); Albumin/Globulin Ratio 1.2 (1.2-2.2); Alkaline Phosphatase 103 U/L (46-116); Anion Gap 7 (7-16); Aspartate Amino Transferase 23 U/L (0-34); BUN/Creatinine Ratio 14 Ratio (12-20); Bilirubin,Total 1.3 mg/dL (0.3-1.2); Blood Urea Nitrogen 14 mg/dL (9-23); Calcium (Corrected) 9.2 mg/dL (8.5-10.1); Carbon Dioxide 28.9 mMol/L (20.0-31.0); Chloride 102 mMol/L (98-107); Estimated Creatinine Clearance 63.4 mL/min (>60); Globulin 3.1 gm/dL (2.3-3.5); Glucose 122 mg/dL (74-106); Magnesium 1.9 mg/dL (1.6-2.6); Osmolality,Calculated 277 (275-295); Potassium 2.9 mMol/L (3.4-5.1); Sodium 138 mMol/L (136-145); Total Protein 6.9 gm/dL (5.7-8.2); eGFR > 60 See Note
--- NOTE | 2024-08-28 08:19 | PC.NURSE ---
REPORT GIVEN TO JORGE SHEA ON MED SURG. ALL QUESTIONS ANSWERED.
[2024-08-28] MEDS: POTASSIUM CHLORIDE 20 mEq TABCR 40 MEQ PO (10:54)
[2024-08-28] MEDS: PANTOPRAZOLE 40 MG TABLET PO (10:54)
--- NOTE | 2024-08-28 13:52 | PD.RESPRO ---
Documentation for date of: 08/28/24 Subjective Subjective Interval history: No overnight events. Patient seen and examined at bedside. Patient resting comfortably, has moderate tremors, baseline for patient. Patient endorses anxiety. Denies fever, chills, weakness, fatigue, dysuria, abdominal pain. Patient notes he has had poor appetite for several months, states he is recently lost 30 pounds unintentionally. Continue bladder irrigation. Wound care for fungal infection bilateral feet. Resume appropriate home meds pending med rec's. Exam Vital Signs Temp Pulse Resp BP Pulse Ox O2 Del Method 97.1 F 84 18 146/77 H 93 L Room Air 08/28/24 11:48 08/28/24 12:48 08/28/24 11:48 08/28/24 11:48 08/28/24 11:48 08/28/24 11:48 Narrative Exam PE: Gen: Well-developed and well-nourished. HEENT: NCAT, PERRLA, EOMI, MMM, anicteric conjunctivae. CVS: normal S1 and S2. RRR. No M/R/G. Resp: CTA B/L. No rhonchi, rales, crackles or wheezing. Abd: soft, non-tender, non-distended. Small umbilical hernia. MSK: Good ROM in BUE & BLE. No edema or rash. 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 Soles of bilateral feet peeling with fungal infection, worse on the left. Neuro: CN II-XII grossly intact. Strength 5/5 in BUE & BLE. Alert and oriented x3. Moderate tremors bilateral hands. Tongue fasciculations. Twitching of mouth. Psych: appropriate mood and affect. Objective Labs 08/28/24 04:52 08/28/24 14:13 Labs: Laboratory Results - last 24 hr 08/27/24 08/27/24 08/28/24 15:14 15:57 04:52 WBC 10.3 12.2 H RBC 5.67 5.10 Hgb 16.9 H 15.1 Hct 46.3 42.2 MCV 82 83 MCH 29.8 29.6 MCHC 36.5 35.8 RDW Std Deviation 40.3 41.9 Plt Count 291 242 D Neut % (Auto) 81 H 81 H Lymph % (Auto) 8 L 9 L [place] % (Auto) 9 9 Eos % (Auto) 1 1 Baso % (Auto) 1 0 Neut # (Auto) 8.3 H 9.8 H Lymph # (Auto) 0.9 L 1.1 [place] # (Auto) 0.9 H 1.1 H Eos # (Auto) 0.1 0.1 Baso # (Auto) 0.1 0.1 Immature Gran # (Auto) 0.03 H 0.03 H Absolute Nucleated RBC 0.00 0.00 Immature Gran % 0 0 Nucleated RBC % 0 0 PT 11.9 INR 1.1 APTT 26.3 Sodium 134 L 138 Potassium 3.0 L 2.9 L Chloride 97 L 102 Carbon Dioxide 26.5 28.9 Anion Gap 11 7 BUN 18 14 Creatinine 1.3 1.0 Estim Creat Clear Calc 48.8 L 63.4 eGFR 55 L > 60 BUN/Creatinine Ratio 14 14 Glucose [address] Glu mg/dL 111 Hemoglobin A1c 5.5 Calculated Osmolality 271 L 277 Calcium 9.3 9.0 Corrected Calcium 9.3 9.2 Magnesium 1.9 Total Bilirubin 1.1 1.3 H AST 36 H 23 ALT 65 H 54 H Alkaline Phosphatase 115 103 Total Protein 8.0 6.9 Albumin 4.4 3.8 D Globulin 3.6 H 3.1 Albumin/Globulin Ratio 1.2 1.2 Lipase 34 Ur Collection Type Clean Catch Urine Color Dark-Brown Urine Clarity Turbid A Urine pH 6.5 Ur Specific [place] 1.019 Urine Protein 2+ A Urine Glucose (UA) Negative Urine Ketones Negative Urine Blood 3+ A Urine Nitrite Negative Urine Bilirubin Negative Urine Urobilinogen (Auto) Negative Ur Leukocyte Esterase Positive Urine RBC 6690 H Urine WBC 0 Ur Squamous Epith Cells 0 Urine Bacteria None Ur Culture Indicated? Not Indicated Quality Measures Quality Measures VTE prophylaxis Advance care planning discussed with:: patient, spouse and other (Son-in-law) Assessment & Plan Assessment Current Active Medications: Generic Name Dose Route Start Last Admin Trade Name Freq PRN Reason Stop Dose Admin Acetaminophen 650 mg 08/28/24 02:25 Acetaminophen 325 Mg Tablet PO 09/27/24 02:24 Q6H PRN Fever >101.5 Acetaminophen 650 mg 08/28/24 02:25 Acetaminophen 325 Mg Tablet PO 09/27/24 02:24 Q6H PRN PAIN SCALE 1-3 (mild Hydralazine HCl 10 mg 08/28/24 03:23 Hydralazine Inj 20 Mg/Ml Vial IV 09/27/24 03:29 Q2H PRN SBP > 180mmHg Lactated Ringer's 1,000 mls @ 75 mls/hr 08/28/24 02:30 08/28/24 02:57 Lactated Ringers IV 08/28/24 15:49 75 mls/hr .[id number] ONE Administration Ceftriaxone Sodium 1,000 mg/ 50 mls @ 100 mls/hr 08/28/24 21:00 Sodium Chloride IV 09/04/24 20:59 QPM ANNAMARIE Ondansetron HCl 4 mg 08/28/24 02:25 Ondansetron Inj 2 Mg/Ml Inj 2 Ml IV 09/27/24 02:24 Q6H PRN NAUSEA OR VOMITING Protocol Oxycodone/Acetaminophen 1 tab 08/28/24 02:25 Oxycodone/Apap 5/325 Tablet PO 09/02/24 02:24 Q6H PRN PAIN SCALE 4-6 (Moderate Pantoprazole Sodium 40 mg 08/28/24 09:00 08/28/24 10:54 Pantoprazole 40 Mg Tablet PO 09/27/24 08:59 40 mg QDAY ANNAMARIE Administration Plan 84-year-old male patient known case of hypertension, Parkinson's disease, 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 Patient reported that he noticed blood in his urine 2 months. Patient was admitted for severe hematuria. #Hematuria #BPH s/p TURP #Urinary bladder cancer rule out Patient vital stable, hemoglobin stable at 16.7, WBC borderline at 10.2, no fever or chills however CT scan showed perinephric stranding and urinary bladder wall thickened. Patient has been having hematuria for the past 2 months, getting progressively worse and eventually developing clots, hemoglobin stable. Patient endorses pain to urination only when passing a clot. No suprapubic tenderness/distention. Contacted Dr. Castro neurologist with [facility] in [place], recommended admit patient for 48 hours about irrigation. If hematuria does not resolve by then, states. He also transferred to [place] for further inpatient management. If hematuria resolves within 48 hours, may discharge patient for outpatient neurology follow-up. -Admit to [facility] -Consult in-house urology on Friday -Ceftriaxone 1 g IV daily -Urine culture pending, follow-up -Continue CBI -Pain management as per protocol -Consider resuming his BPH medications upon discharge and removal of the catheter #Hypokalemia On presentation patient potassium level was 3.0, he was given 1 dose of 40 mEq of potassium p.o. Repleted potassium with another dose of 40 mEq of potassium p.o. -Daily BMP -Replete as needed #Transaminitis Patient was noticed to have elevated AST and ALT 36 and 65 respectively, CT scan did not show on the liver lesion or irregularity on liver contour Alk phos and total bilirubin are within normal limits -Acute hepatitis panel, follow-up #Bilateral tinea pedis Patient has fungal growth with skin peeling on bilateral soles of feet. Patient states that due to his depression he has not changed his socks for at least 2 weeks. Patient and family are unaware of infection. Patient does not complain of pain in the feet. -Wound care -Ketoconazole cream #Parkinson's disease Patient recently diagnosed with Parkinson's disease. Patient does take outpatient medications, claims that the side effects are so severe he prefers to do with the tremors. On exam patient has moderate bilateral hand tremors, tongue fasciculations, mouth twitch. -Consider resuming home meds following med reconciliation #Hypertension Patient history as stated. -Resume home medication after med reconciliation is done -Hydralazine 10 mg IV as needed every 2 hours if SBP more than 180 mmHg #History of depression Patient history as stated. Patient reports feeling anxious and also depressed at this time. -Resume home medication upon med reconciliation DVT prophylaxis: SCDs GI prophylaxis: Protonix Diet: Regular Lines: Peripheral IV, three-way catheter Code status: Full code Plan of care discussed with attending Dr. Pandey. Isacc Ames MD PGY?1 Attending Provider Attestation/Addendum Starr Patel, , attest that I was physically present for the kearney portions of the service and evaluated the patient with the resident and I reviewed and discussed the case with the resident and agree with the resident's findings and plans of care as documented above Patient seen and evaluated this AM. Patient has a three way catheter with CBI due to hematuria. Urine is now pink tinged. Patient states that he has had ongoing hematuria and pending urology evaluation outpatient. However, his symptoms worsened yesterday when he was trying to void a clot. Patient states that he is a Orthodox and cannot have any blood transfusions. He is otherwise a full code. Patient states that he does not wish to take his Parkinson's medications due to hallucinations. Will start patient on flomax. he is noted to have significant prostatomegaly on CT abd/pelvis. Will continue [facility] CBI and current management. Will f/u with urine cultures.
[2024-08-28 14:50] LABS: Albumin, Serum 3.9 gm/dL (3.4-4.8); Anion Gap 6 (7-16); BUN/Creatinine Ratio 14 Ratio (12-20); Blood Urea Nitrogen 14 mg/dL (9-23); Calcium (Corrected) 9.1 mg/dL (8.5-10.1); Chloride 102 mMol/L (98-107); Estimated Creatinine Clearance 63.4 mL/min (>60); Glucose 112 mg/dL (74-106); Osmolality,Calculated 277 (275-295); Potassium 3.2 mMol/L (3.4-5.1); Sodium 138 mMol/L (136-145); eGFR > 60 See Note
[2024-08-28] MEDS: POTASSIUM CHLORIDE 20 mEq TABCR PO (14:55)
[2024-08-28] MEDS: KETOCONAZOLE CR 2% 15 GM TUBE TOP (17:51)
[2024-08-28] MEDS: MELATONIN 3 MG TABLET PO (23:02)
[2024-08-28] MEDS: oxyCODONE/APAP 5/325 TABLET 1 TAB PO (23:02)
[2024-08-29] VITALS (10 sets, daily range): BP systolic 131–138; BP diastolic 70–84; PULSE 70–88; RESP 16–94; TEMP 36.8–37; O2SAT 93–97
[2024-08-29 06:32] LABS: Basophils # (Auto) 0.1 Thou/mm3 (0.0-0.2); Basophils % (Auto) 1 % (0-2.5); Eosinophils # (Auto) 0.2 Thou/mm3 (0.0-0.5); Eosinophils % (Auto) 3 % (0-10); Hematocrit 42.3 % (41.0-53.0); Hemoglobin 15.2 g/dL (13.5-16.0); Immature Granulocytes % (Auto) 0 % (0-0); Immature Granulocytes Auto 0.03 Thou/mm3 (0.00-0.00); Lymphocytes # (Auto) 1.5 Thou/mm3 (1.0-4.8); Lymphocytes % (Auto) 17 % (10-50); Mean Corpuscular HGB Conc 35.9 g/dl (31.0-37.0); Mean Corpuscular Volume 83 fL (80-100); Monocytes # (Auto) 0.9 Thou/mm3 (0.0-0.8); Monocytes % (Auto) 10 % (0-12); Neutrophils % (Auto) 69 % (37-80); Nucleated Red Blood Cell % 0 /100 WBC (0); Platelet Count 249 Thou/mm3 (140-440); RDW Standard Deviation 42.7 fL (35.1-43.9); Red Blood Count 5.07 Miln/mm3 (4.50-5.90); White Blood Count 8.7 Thou/mm3 (3.8-10.6)
[2024-08-29 06:40] LABS: Alanine Aminotransferase 44 U/L (10-49); Albumin, Serum 3.9 gm/dL (3.4-4.8); Albumin/Globulin Ratio 1.3 (1.2-2.2); Alkaline Phosphatase 98 U/L (46-116); Anion Gap 6 (7-16); Aspartate Amino Transferase 25 U/L (0-34); BUN/Creatinine Ratio 14 Ratio (12-20); Bilirubin,Total 1.4 mg/dL (0.3-1.2); Blood Urea Nitrogen 14 mg/dL (9-23); Calcium 8.9 mg/dL (8.3-10.6); Carbon Dioxide 28.2 mMol/L (20.0-31.0); Chloride 102 mMol/L (98-107); Estimated Creatinine Clearance 63.4 mL/min (>60); Globulin 2.9 gm/dL (2.3-3.5); Glucose 116 mg/dL (74-106); Magnesium 1.9 mg/dL (1.6-2.6); Osmolality,Calculated 273 (275-295); Phosphorous 3.2 mg/dL (2.4-5.1); Potassium 3.1 mMol/L (3.4-5.1); Sodium 136 mMol/L (136-145); Total Protein 6.8 gm/dL (5.7-8.2); eGFR > 60 See Note
[2024-08-29] MEDS: Magnesium Sulfate 2 GM Ivpb 2 GM/50 ML BAG IV (08:52)
[2024-08-29] MEDS: PANTOPRAZOLE 40 MG TABLET PO (08:53)
[2024-08-29] MEDS: POTASSIUM CHLORIDE 20 mEq TABCR 40 MEQ PO (08:53)
[2024-08-29] MEDS: KETOCONAZOLE CR 2% 15 GM TUBE TOP (08:54)
--- NOTE | 2024-08-29 11:07 | PC.SS ---
Patient is alert/oriented. Patient is Yemeni speaking only. Interpreting line used. Patient's was at bedside and participated in assessment. Patient is alert/oriented. Patient was able to verify demographics. Patient resides at home with . Patient was admitted for hematuria. Patient states he's independent with ADL's. Patient wants to make sure it is documented that he is Jehovah Witness and cannot receive any blood transfussions. SS went back and looked into system and it is noted his taoism. Patient states he's independent with ADL's. No DME. Patient states he drives himself to all appointments. Patient states he has a new physician, Dr. Arteaga and his appt. is scheduled for 09/10/24. Prior to that he was with [facility]. Patient does not see any other physician's for o/p services. Pharmacy: [facility]. Patient verbalized his daughter, Clifton, is the alt medical decision maker. D/c plan is to return home.
--- NOTE | 2024-08-29 12:02 | PD.RESPRO ---
Documentation for date of: 08/29/24 Subjective Subjective Interval history: Overnight, no acute events reported. Patient seen and examined at bedside. Patient continues to have tremors in his upper extremities bilaterally. Patient refuses to take his Parkinson's medications due to frequent hallucinations. Will try propranolol 10 mg twice daily for his anxiety and tremors. Pending hepatitis panel and urine culture. Will also change his sertraline timing to 9 AM. Will consult urology tomorrow for further recommendations. Also repleted patient's magnesium and potassium. Patient's questions asked and answered. Patient agrees with current course of plan. Patient denies any pain at this time. Exam Vital Signs Temp Pulse Resp BP Pulse Ox O2 Del Method 98.3 F 80 17 131/77 H 96 Room Air 08/29/24 08:00 08/29/24 10:02 08/29/24 10:02 08/29/24 08:00 08/29/24 08:00 08/29/24 08:00 Narrative Exam General Appearance: Pt in mild acute distress laying in bed. Well-developed and well-nourished. 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 B/l feet soles seen with fungal infection, L worse than R. Radial pulses 2+ BL, DP pulses 2 + BL SKIN: Skin exam normal without any rashes. Neuro: A&O x 3. No gross neurological deficits. Motor and sensory grossly intact in B/L UL and LL. Moderate tremors b/l hands. Tongue fasciculations and twitching of mouth. Psych: Appropriate mood and affect Objective Labs 08/29/24 05:45 08/29/24 05:45 Labs: Laboratory Results - last 24 hr 08/28/24 08/29/24 14:13 05:45 WBC 8.7 RBC 5.07 Hgb 15.2 Hct 42.3 MCV 83 MCH 30.0 MCHC 35.9 RDW Std Deviation 42.7 Plt Count 249 Neut % (Auto) 69 Lymph % (Auto) 17 [place] % (Auto) 10 Eos % (Auto) 3 Baso % (Auto) 1 Neut # (Auto) 6.0 Lymph # (Auto) 1.5 [place] # (Auto) 0.9 H Eos # (Auto) 0.2 Baso # (Auto) 0.1 Immature Gran # (Auto) 0.03 H Absolute Nucleated RBC 0.00 Immature Gran % 0 Nucleated RBC % 0 Sodium 138 136 Potassium 3.2 L 3.1 L Chloride 102 102 Carbon Dioxide 30.0 28.2 Anion Gap 6 L 6 L BUN 14 14 Creatinine 1.0 1.0 Estim Creat Clear Calc 63.4 63.4 eGFR > 60 > 60 BUN/Creatinine Ratio 14 14 Glucose 112 H 116 H Calculated Osmolality 277 273 L Calcium 9.0 8.9 Corrected Calcium 9.1 9.0 Phosphorus 2.0 L 3.2 Magnesium 1.9 Total Bilirubin 1.4 H AST 25 ALT 44 Alkaline Phosphatase 98 Total Protein 6.8 Albumin 3.9 3.9 Globulin 2.9 Albumin/Globulin Ratio 1.3 Quality Measures Quality Measures VTE prophylaxis Advance care planning discussed with:: patient Assessment & Plan Assessment Current Active Medications: Generic Name Dose Route Start Last Admin Trade Name Freq PRN Reason Stop Dose Admin Acetaminophen 650 mg 08/28/24 02:25 Acetaminophen 325 Mg Tablet PO 09/27/24 02:24 Q6H PRN Fever >101.5 Acetaminophen 650 mg 08/28/24 02:25 Acetaminophen 325 Mg Tablet PO 09/27/24 02:24 Q6H PRN PAIN SCALE 1-3 (mild Hydralazine HCl 10 mg 08/28/24 03:23 Hydralazine Inj 20 Mg/Ml Vial IV 09/27/24 03:29 Q2H PRN SBP > 180mmHg Ceftriaxone Sodium 1,000 mg/ 50 mls @ 100 mls/hr 08/28/24 21:00 08/28/24 20:19 Sodium Chloride IV 09/04/24 20:59 100 mls/hr QPM ANNAMARIE Administration Ketoconazole 0 gm 08/28/24 14:15 08/29/24 08:54 Ketoconazole Cr 2% 15 Gm Tube TOP 09/27/24 14:14 1 applicatio QDAY ANNAMARIE Administration Melatonin 3 mg 08/28/24 21:00 08/28/24 23:02 Melatonin 3 Mg Tablet PO 09/27/24 20:59 3 mg HS ANNAMARIE Administration Ondansetron HCl 4 mg 08/28/24 02:25 Ondansetron Inj 2 Mg/Ml Inj 2 Ml IV 09/27/24 02:24 Q6H PRN NAUSEA OR VOMITING Protocol Oxycodone/Acetaminophen 1 tab 08/28/24 02:25 08/28/24 23:02 Oxycodone/Apap 5/325 Tablet PO 09/02/24 02:24 1 tab Q6H PRN Administration PAIN SCALE 4-6 (Moderate Pantoprazole Sodium 40 mg 08/28/24 09:00 08/29/24 08:53 Pantoprazole 40 Mg Tablet PO 09/27/24 08:59 40 mg QDAY ANNAMARIE Administration Propranolol HCl 10 mg 08/29/24 11:00 Propranolol 10 Mg Tablet PO 09/28/24 10:59 BID ANNAMARIE Sertraline HCl 50 mg 08/29/24 21:00 Sertraline Hcl 25 Mg Tablet PO 09/28/24 20:59 HS ANNAMARIE Plan 84-year-old male patient known case of hypertension, Parkinson's disease, 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 Patient reported that he noticed blood in his urine 2 months. Patient was admitted for severe hematuria. #Hematuria-improving #BPH s/p TURP #Urinary bladder cancer rule out Patient vital stable, hemoglobin stable at 16.7, WBC borderline at 10.2, no fever or chills however CT scan showed perinephric stranding and urinary bladder wall thickened. Patient has been having hematuria for the past 2 months, getting progressively worse and eventually developing clots, hemoglobin stable. Patient endorses pain to urination only when passing a clot. No suprapubic tenderness/distention. Contacted Dr. Castro neurologist with [facility] in [place], recommended admit patient for 48 hours about irrigation. If hematuria does not resolve by then, states. He also transferred to [place] for further inpatient management. If hematuria resolves within 48 hours, may discharge patient for outpatient neurology follow-up. -Consult in-house urology tomorrow -Ceftriaxone 1 g IV daily -Urine culture pending, follow-up -Continue CBI -Pain management as per protocol -Consider resuming his BPH medications upon discharge and removal of the catheter #Hypokalemia On presentation patient potassium level was 3.0, he was given 1 dose of 40 mEq of potassium p.o. Repleted potassium with another dose of 40 mEq of potassium p.o. -Daily BMP -Replete as needed #Transaminitis Patient was noticed to have elevated AST and ALT 36 and 65 respectively, CT scan did not show on the liver lesion or irregularity on liver contour Alk phos and total bilirubin are within normal limits -Acute hepatitis panel, follow-up #Bilateral tinea pedis Patient has fungal growth with skin peeling on bilateral soles of feet. Patient states that due to his depression he has not changed his socks for at least 2 weeks. Patient and family are unaware of infection. Patient does not complain of pain in the feet. -Wound care -Ketoconazole cream #Parkinson's disease Patient recently diagnosed with Parkinson's disease. Patient does take outpatient medications, claims that the side effects are so severe he prefers to do with the tremors. On exam patient has moderate bilateral hand tremors, tongue fasciculations, mouth twitch. -Patient refuses to take his home Carvidopa and Levodopa, d/t his frequent hallucinations #Hypertension Patient history as stated. -Resume home medication after med reconciliation is done -Hydralazine 10 mg IV as needed every 2 hours if SBP more than 180 mmHg #History of depression #Anxiety Patient history as stated. Patient reports feeling anxious and also depressed at this time. -Resumed home sertraline -Started Propranolol 10mg BID for anxiety and tremors Health maintenance: DVT prophylaxis: SCDs GI prophylaxis: Protonix Diet: Regular Lines: Peripheral IV, three-way catheter Code status: Full code Patient's plan and care discussed with my attending, Dr. Katherin Fish MD PGY-2 Attending Provider Attestation/Addendum Starr Patel DO, attest that I was physically present for the kearney portions of the service and evaluated the patient with the resident and I reviewed and discussed the case with the resident and agree with the resident's findings and plans of care as documented above Patient seen and evaluated this AM. Patient states he is doing well and reports no lower abdominal pain. Urine is clear. Will f/u with Ucx and continue with IV abx at this time. Will narrow abx based on final cultures and sensitivities. Will consult urology in AM if available. Hematuria is resolved at this time and H/H stable. Patient states he is very anxious and concerned that he has not taken his BP medications. Patient takes chlorthalidone. Will hold at this time due to concern for hyponatremia with addition of use of CBI. Will switch to propranolol as it may help with patient's anxiety as well. Will also restart patient's home sertraline.
[2024-08-29] MEDS: PROPRANOLOL 10 MG TABLET PO ×2 (14:40→20:29)
[2024-08-29] MEDS: cefTRIAXone 1,000 MG in SODIUM CHLORIDE 0.9% (Popper) 50 ML 100 MG IV (20:28)
[2024-08-29] MEDS: MELATONIN 3 MG TABLET PO (20:29)
[2024-08-29 22:07] LABS: Hepatitis A Antibody IgM Non Reactive (Non React); Hepatitis B Core Antibody IgM Non Reactive (Non React); Hepatitis B Surface Antigen Non Reactive (Non React); Hepatitis C Antibody Non Reactive (Non React)
[2024-08-30] VITALS (9 sets, daily range): BP systolic 124–134; BP diastolic 75–80; PULSE 61–88; RESP 17–96; TEMP 36.1–36.9; O2SAT 94–99
[2024-08-30] MEDS: oxyCODONE/APAP 5/325 TABLET 1 TAB PO (00:08)
[2024-08-30 06:26] LABS: Basophils % (Auto) 1 % (0-2.5); Eosinophils # (Auto) 0.3 Thou/mm3 (0.0-0.5); Eosinophils % (Auto) 4 % (0-10); Hematocrit 42.5 % (41.0-53.0); Hemoglobin 14.9 g/dL (13.5-16.0); Immature Granulocytes % (Auto) 0 % (0-0); Immature Granulocytes Auto 0.02 Thou/mm3 (0.00-0.00); Lymphocytes # (Auto) 1.4 Thou/mm3 (1.0-4.8); Lymphocytes % (Auto) 19 % (10-50); Mean Corpuscular HGB Conc 35.1 g/dl (31.0-37.0); Mean Corpuscular Hemoglobin 29.2 pg (25.0-35.0); Mean Corpuscular Volume 83 fL (80-100); Monocytes # (Auto) 0.8 Thou/mm3 (0.0-0.8); Monocytes % (Auto) 11 % (0-12); Neutrophils # (Auto) 4.6 Thou/mm3 (1.8-7.7); Neutrophils % (Auto) 65 % (37-80); Nucleated Red Blood Cell % 0 /100 WBC (0); Platelet Count 274 Thou/mm3 (140-440); RDW Standard Deviation 42.9 fL (35.1-43.9); White Blood Count 7.1 Thou/mm3 (3.8-10.6)
[2024-08-30 06:35] LABS: Alanine Aminotransferase 39 U/L (10-49); Albumin, Serum 3.8 gm/dL (3.4-4.8); Albumin/Globulin Ratio 1.2 (1.2-2.2); Alkaline Phosphatase 96 U/L (46-116); Anion Gap 9 (7-16); Aspartate Amino Transferase 23 U/L (0-34); BUN/Creatinine Ratio 17 Ratio (12-20); Bilirubin,Total 0.9 mg/dL (0.3-1.2); Blood Urea Nitrogen 15 mg/dL (9-23); Calcium 9.5 mg/dL (8.3-10.6); Calcium (Corrected) 9.7 mg/dL (8.5-10.1); Carbon Dioxide 28.8 mMol/L (20.0-31.0); Chloride 102 mMol/L (98-107); Creatinine (Component) 0.9 mg/dL (0.6-1.3); Estimated Creatinine Clearance 70.4 mL/min (>60); Globulin 3.2 gm/dL (2.3-3.5); Glucose 116 mg/dL (74-106); Osmolality,Calculated 281 (275-295); Phosphorous 3.5 mg/dL (2.4-5.1); Potassium 3.2 mMol/L (3.4-5.1); Sodium 140 mMol/L (136-145); eGFR > 60 See Note
[2024-08-30] MEDS: POTASSIUM CHLORIDE 20 mEq TABCR 40 MEQ PO (08:39)
[2024-08-30] MEDS: SERTRALINE HCL 25 MG TABLET 50 MG PO (08:40)
[2024-08-30] MEDS: PANTOPRAZOLE 40 MG TABLET PO (08:40)
[2024-08-30] MEDS: PROPRANOLOL 10 MG TABLET PO ×2 (08:40→20:43)
[2024-08-30] MEDS: KETOCONAZOLE CR 2% 15 GM TUBE TOP (08:41)
--- NOTE | 2024-08-30 09:12 | PC.SS ---
rounding note: pending urology consult
[2024-08-30] MEDS: FINASTERIDE 5 MG TABLET PO (14:34)
--- NOTE | 2024-08-30 14:47 | ESPR_ITS ---
<Statement entered by Kasia Craft MD - 08/30/24 18:11> I discussed with and supervised the internal corrosion specialist physician who took care of this patient. I personally saw and examined the patient and discussed the assessment and plan with the entire medicine team, including my attending Dr. Pandey, I agree with the assessment and plan as documented below Patient seen and examined at bedside today. Labs and imaging reviewed. No overnight acute events Does not bedside patient is anxious, pulling his Sheikh catheter, per urologist recommendation bladder irrigation was stopped and finasteride was added and we will increase Flomax dose. Due to patient has been very anxious we will add Seroquel 12.5 mg p.o. at night. Kasia Craft MD PGY-3 Disclaimer: Despite multiple revisions, due to the dictation software being used, the document bellow may not be free of grammatical errors including phonetic/typographic errors. However, this does not deter from our commitment to providing health care in the patient's best interest in mind. Documentation for date of: 08/30/24 Subjective Subjective Interval history: Overnight events. Patient seen and examined at bedside. Patient expresses anxiety regarding condition, complains of poor sleep. Denies fever, chills, chest pain, shortness of breath, dysuria, abdominal pain. Requested records from [facility] per urology. Bladder irrigation stopped. Urine culture negative, antibiotics discontinued. Provided reassurance to patient. Exam Vital Signs Temp Pulse Resp BP Pulse Ox O2 Del Method 97.1 F 79 18 125/80 97 Room Air 08/30/24 08:00 08/30/24 11:52 08/30/24 11:52 08/30/24 08:40 08/30/24 08:00 08/30/24 08:00 Narrative Exam PE: Gen: Well-developed and well-nourished. HEENT: NCAT, PERRLA, EOMI, MMM, anicteric conjunctivae. CVS: normal S1 and S2. RRR. No M/R/G. Resp: CTA B/L. No rhonchi, rales, crackles or wheezing. Abd: soft, non-tender, non-distended. Small umbilical hernia. MSK: Good ROM in BUE & BLE. No edema or rash. 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 Soles of bilateral feet peeling with fungal infection, worse on the left. Neuro: CN II-XII grossly intact. Strength 5/5 in BUE & BLE. Alert and oriented x3. Moderate tremors bilateral hands. Tongue fasciculations. Twitching of mouth. Psych: appropriate mood and affect. Objective Labs 08/31/24 03:03 08/31/24 03:03 Labs: Laboratory Results - last 24 hr 08/27/24 08/30/24 15:57 05:19 WBC 7.1 RBC 5.10 Hgb 14.9 Hct 42.5 MCV 83 MCH 29.2 MCHC 35.1 RDW Std Deviation 42.9 Plt Count 274 Neut % (Auto) 65 Lymph % (Auto) 19 [place] % (Auto) 11 Eos % (Auto) 4 Baso % (Auto) 1 Neut # (Auto) 4.6 Lymph # (Auto) 1.4 [place] # (Auto) 0.8 Eos # (Auto) 0.3 Baso # (Auto) 0.0 Immature Gran # (Auto) 0.02 H Absolute Nucleated RBC 0.00 Immature Gran % 0 Nucleated RBC % 0 Sodium 140 Potassium 3.2 L Chloride 102 Carbon Dioxide 28.8 Anion Gap 9 BUN 15 Creatinine 0.9 Estim Creat Clear Calc 70.4 eGFR > 60 BUN/Creatinine Ratio 17 Glucose 116 H Calculated Osmolality 281 Calcium 9.5 Corrected Calcium 9.7 Phosphorus 3.5 Magnesium 2.0 Total Bilirubin 0.9 D AST 23 ALT 39 Alkaline Phosphatase 96 Total Protein 7.0 Albumin 3.8 Globulin 3.2 Albumin/Globulin Ratio 1.2 Hepatitis A IgM Ab Non Reactive Hep Bs Antigen Non Reactive Hep B Core IgM Ab Non Reactive Hepatitis C Antibody Non Reactive Quality Measures Quality Measures VTE prophylaxis Advance care planning discussed with:: patient and spouse Assessment & Plan Assessment Current Active Medications: Generic Name Dose Route Start Last Admin Trade Name Freq PRN Reason Stop Dose Admin Acetaminophen 650 mg 08/28/24 02:25 Acetaminophen 325 Mg Tablet PO 09/27/24 02:24 Q6H PRN Fever >101.5 Acetaminophen 650 mg 08/28/24 02:25 Acetaminophen 325 Mg Tablet PO 09/27/24 02:24 Q6H PRN PAIN SCALE 1-3 (mild Finasteride 5 mg 08/30/24 13:30 08/30/24 14:34 Finasteride 5 Mg Tablet PO 09/29/24 13:29 5 mg QDAY ANNAMARIE Administration Hydralazine HCl 10 mg 08/28/24 03:23 Hydralazine Inj 20 Mg/Ml Vial IV 09/27/24 03:29 Q2H PRN SBP > 180mmHg Ketoconazole 0 gm 08/28/24 14:15 08/30/24 08:41 Ketoconazole Cr 2% 15 Gm Tube TOP 09/27/24 14:14 1 applicatio QDAY ANNAMARIE Administration Melatonin 3 mg 08/28/24 21:00 08/29/24 20:29 Melatonin 3 Mg Tablet PO 09/27/24 20:59 3 mg HS ANNAMARIE Administration Ondansetron HCl 4 mg 08/28/24 02:25 Ondansetron Inj 2 Mg/Ml Inj 2 Ml IV 09/27/24 02:24 Q6H PRN NAUSEA OR VOMITING Protocol Oxycodone/Acetaminophen 1 tab 08/28/24 02:25 08/30/24 00:08 Oxycodone/Apap 5/325 Tablet PO 09/02/24 02:24 1 tab Q6H PRN Administration PAIN SCALE 4-6 (Moderate Pantoprazole Sodium 40 mg 08/28/24 09:00 08/30/24 08:40 Pantoprazole 40 Mg Tablet PO 09/27/24 08:59 40 mg QDAY ANNAMARIE Administration Propranolol HCl 10 mg 08/29/24 11:00 08/30/24 08:40 Propranolol 10 Mg Tablet PO 09/28/24 10:59 10 mg BID ANNAMARIE Administration Sertraline HCl 50 mg 08/30/24 09:00 08/30/24 08:40 Sertraline Hcl 25 Mg Tablet PO 09/29/24 08:59 50 mg QDAY ANNAMARIE Administration Plan 84-year-old male patient known case of hypertension, Parkinson's disease, 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 Patient reported that he noticed blood in his urine 2 months. Patient was admitted for severe hematuria. #Hematuria, resolved #BPH s/p TURP #Urinary bladder cancer rule out Patient vital stable, hemoglobin stable at 16.7, WBC borderline at 10.2, no fever or chills however CT scan showed perinephric stranding and urinary bladder wall thickened. Patient has been having hematuria for the past 2 months, getting progressively worse and eventually developing clots, hemoglobin stable. Patient endorses pain to urination only when passing a clot. No suprapubic tenderness/distention. Contacted Dr. Castro neurologist with [facility] in [place], recommended admit patient for 48 hours about irrigation. If hematuria does not resolve by then, states. He also transferred to [place] for further inpatient management. If hematuria resolves within 48 hours, may discharge patient for outpatient urology follow-up. Dr Parker urology consulted. Recommended discontinuing bladder irrigation, keep Sheikh in place for 7 days for bladder decompression. Records requested from [facility]. Urine culture negative, antibiotics discontinued. -Dr Parker consulted, appreciate recommendations -Pain management as per protocol #Hypokalemia?resolved On presentation patient potassium level was 3.0, he was given 1 dose of 40 mEq of potassium p.o. Repleted potassium with another dose of 40 mEq of potassium p.o. -Daily BMP -Replete as needed #Transaminitis?resolved Patient was noticed to have elevated AST and ALT 36 and 65 respectively, CT scan did not show on the liver lesion or irregularity on liver contour Alk phos and total bilirubin are within normal limits Acute hepatitis panel negative. LFTs down trended to WNL. #Bilateral tinea pedis Patient has fungal growth with skin peeling on bilateral soles of feet. Patient states that due to his depression he has not changed his socks for at least 2 weeks. Patient and family are unaware of infection. Patient does not complain of pain in the feet. -Wound care -Ketoconazole cream #Parkinson's disease Patient recently diagnosed with Parkinson's disease. Patient does take outpatient medications, claims that the side effects are so severe he prefers to do with the tremors. On exam patient has moderate bilateral hand tremors, tongue fasciculations, mouth twitch. -Outpatient follow-up with neurology #Hypertension Patient history as stated. -Hydralazine 10 mg IV as needed every 2 hours if SBP more than 180 mmHg #History of depression Patient history as stated. Patient reports feeling anxious and also depressed at this time. -Sertraline 50 mg p.o. daily DVT prophylaxis: SCDs GI prophylaxis: Protonix Diet: Regular Lines: Peripheral IV, three-way catheter Code status: Full code Plan of care discussed with senior resident Dr. Venancio PGY?[address] Pandey. Isacc Ames MD PGY?1 Attending Provider Attestation/Addendum I, Starr Pandey, DO, attest that I was physically present for the kearney portions of the service and evaluated the patient with the resident and I reviewed and discussed the case with the resident and agree with the resident's findings and plans of care as documented above Patient seen and eval this a.m. He is standing up and in mild distress due to leakage around his Sheikh catheter. Patient is holding a towel with some blood- tinged urine on the towel. Patient states that no one has addressed his pain. However, the urinary output noted in the Sheikh bag is clear. Patient is trying to squeeze the surrounding of his Sheikh catheter to show me that there is some blood-tinged urine. Patient is anxious and states that he has been very depressed due to his urinary issues. Explained to patient that I spoke with urology this morning and will come to assess the patient. However, there are no more clots in the sheikh bag which is reassuring. Case was later states discussed with urology in the afternoon once he was evaluated. Recommended discontinuation of CBI and leave sheikh catheter for at least 7-10days to decompress the bladder. If patient develops clot, will manually irrigate sheikh catheter. [facility]. Will add finasteride and tamsulosin. Anticipate DC within next 24-48h
[2024-08-30] MEDS: TAMSULOSIN HCL 0.4 MG CAPSULE PO (15:39)
--- NOTE | 2024-08-30 18:57 | ESPR_ITS ---
RE: DEANA REBOLLAR : 1940 DATE OF SERVICE: 08/30/2024 CHIEF COMPLAINT: 1. Intermittent gross hematuria of 2 months' duration. 2. Urinary retention. 3. Giant prostatomegaly, status post prostatic surgery done 8 years ago in [facility] by DR Jean Paul Ha. I do not have the operative note on the patient. 4. I was asked to see this patient at the request of Dr Pandey who is the hospitalist to see if he has a clot retention as a result of gross hematuria to see if his catheter needs to be flushed, I told Dr. Pandey that I will see the patient one time if there is a clot I will flush his catheter after that he will be transferred to the care of Dr Castro at the [facility] who had agreed to see the patient at the outpatient clinic because I am not on-call for the hospital. This is an 84-year-old gentleman. He is seen in presence of his and his friend. He has comorbid conditions of: 1. Hypertension. 2. Parkinsonism disease. 3. Depression. 4. Intermittent gross hematuria of 2 months' duration. HISTORY OF PRESENT ILLNESS: This is an 84-year-old gentleman. This patient has intermittent gross hematuria of 2 months' duration. He is not a smoker. He is not exposed to secondhand smoking. He has no history of bleeding diathesis. He is not taking anticoagulants. He came to the emergency room on 08/28/2024 with history of difficulty in urinating and suprapubic pressure. He had blood in the urine with clots. He had placement of 3-way Phillip catheter and CBI was instituted. He has no history of nausea, vomiting, fever or abdominal pain. He has no history of loss of weight or appetite. The patient has seen his PCP 1 month ago. In the emergency room, his vital signs are as follows: Blood pressure is 138/76. Normal vital signs. Hemoglobin is 16.9, WBC is 10.3, and platelet count is 291, PTT and PT within normal limits. There was no previous serum creatinine result and his GFR is 55 and serum creatinine is 1.3. ER physician had contacted Dr. Castro at [facility] in [place] and she recommended to continue with irrigation for 48 hours and if the symptoms improve, she will see the patient on outpatient setting. SOCIAL HISTORY: Alcohol denied. Tobacco denied. Illicit drugs denied. REVIEW OF THE SYSTEM: Narrative review of the examination. PHYSICAL EXAMINATION: General: Condition is satisfactory. The patient is Nepali speaking. HEENT: No anemia or jaundice. Skin: Warm and dry. Urinalysis was done in the emergency room. Urine is not infected. ASSESSMENT AND PLAN: This is an 84-year-old gentleman with history of intermittent gross hematuria, had a clot retention, placement of Phillip catheter, started on CBI. His urine is completely clear today. At this time on my examination his urine is completely clear no gross hematuria no clots he does not need irrigation of Phlilip catheter.. RECOMMENDATION: Since his urine is completely clear no gross hematuria no clot retention he does not need flushing of the catheter, patient can be discharged to the care of of Dr. Castro in [facility] In the meantime start on finasteride 5 mg p.o. daily. I called DR Pandey and discussed my finding with her the patient can be discharged to under the care of his urologist in [facility] Dr. Yodit Rodgers or Dr. Castro in [facility] for further management I had explained this to patient and his and his friend who was at his bedside in great detail since the urologist in [facility] has done the surgery and he should follow up with him for urinary retention and gross hematuria for further workup as I do not have his operative note and I do not know the nature of of surgery was done on his prostate gland, DT: 16:07:19 TT: 18:56:00 Ref: [id number] - TID: [id number] [facility]
[2024-08-30] MEDS: QUEtiapine FUMARATE 25 MG TABLET 12.5 MG PO (20:44)
[2024-08-30] MEDS: MELATONIN 3 MG TABLET PO (20:44)
[2024-08-31] VITALS (13 sets, daily range): BP systolic 110–179; BP diastolic 64–88; PULSE 62–103; RESP 18–93; TEMP 36.4–38.6; O2SAT 92–99
[2024-08-31] MEDS: hydrOXYzine HCL 25 MG TABLET PO (00:12)
--- NOTE | 2024-08-31 00:28 | PC.NURSE ---
patient c/o not being able to sleep, patient states he is anxiety and feels sad since he is here at the hospital. Patient given melatonin and seroquel to aid with sleep but patient states not working. Dr. Cade at bedside to assess the patient. New orders received.
--- NOTE | 2024-08-31 00:30 | PC.NURSE ---
patient c/o cough, productive with cream/yellowish mucus observed. Dr. Cade made aware.
--- NOTE | 2024-08-31 02:40 | XR_ITS ---
Examination: AP chest single view Technique one AP portable upright chest single view Exam date and time: August 31, 2024 0150 hrs. Indications: Sepsis protocol Findings: Normal heart size Mild vascular congestion No lobar pneumonia Impression: No pneumonia identified
--- NOTE | 2024-08-31 02:58 | PD.RESEVENT ---
Documentation for date of: 08/31/24 Event Note Event Note: Around 230 AM, rapid response was called for fever of 101 and tachycardia (110s). Pt also expressed having dysuria, trouble sleeping and felt febrile. Sepsis alert was initiated, and workup included blood cultures, CXR, UA, CMP, CBC, Pro-robert and lactate. Zosyn was initiated for the patient. Oxygen demands also increased for the patient, and pt began to use 3L NC. Vancomycin will be started if CXR shows PNA. Physical exam showed lungs CTAB, no LE edema, mild tenderness to epigastric area. Pt also given 2L sepsis bolus and Tylenol x1. Patient seen and care discussed with my attending physician, Dr. Charles Cade, PGY-1
[2024-08-31] MEDS: SODIUM CHLORIDE 0.9% 1000 ML 1,000 ML 999 ML IV ×2 (03:18→04:15)
[2024-08-31] MEDS: ACETAMINOPHEN 325 MG TABLET 650 MG PO (03:22)
[2024-08-31] MEDS: PIPER/TAZO INJ 4.5 GM in SODIUM CHLORIDE 0.9% (POP) 100 ML IV (03:23)
[2024-08-31 03:28] LABS: Lactate (Lactic Acid) 1.4 mMol/L (0.4-2.0)
[2024-08-31 03:34] LABS: Basophils % (Auto) 0 % (0-2.5); Eosinophils # (Auto) 0.2 Thou/mm3 (0.0-0.5); Eosinophils % (Auto) 2 % (0-10); Hematocrit 42.6 % (41.0-53.0); Hemoglobin 15.2 g/dL (13.5-16.0); Immature Granulocytes % (Auto) 0 % (0-0); Immature Granulocytes Auto 0.03 Thou/mm3 (0.00-0.00); Lymphocytes # (Auto) 0.3 Thou/mm3 (1.0-4.8); Lymphocytes % (Auto) 3 % (10-50); Mean Corpuscular HGB Conc 35.7 g/dl (31.0-37.0); Mean Corpuscular Volume 84 fL (80-100); Monocytes # (Auto) 0.9 Thou/mm3 (0.0-0.8); Monocytes % (Auto) 8 % (0-12); Neutrophils # (Auto) 8.9 Thou/mm3 (1.8-7.7); Neutrophils % (Auto) 86 % (37-80); Nucleated Red Blood Cell % 0 /100 WBC (0); Platelet Count 248 Thou/mm3 (140-440); RDW Standard Deviation 43.3 fL (35.1-43.9); Red Blood Count 5.07 Miln/mm3 (4.50-5.90); White Blood Count 10.3 Thou/mm3 (3.8-10.6)
[2024-08-31 03:56] LABS: Alanine Aminotransferase 41 U/L (10-49); Albumin, Serum 3.9 gm/dL (3.4-4.8); Albumin/Globulin Ratio 1.1 (1.2-2.2); Alkaline Phosphatase 96 U/L (46-116); Anion Gap 9 (7-16); Aspartate Amino Transferase 25 U/L (0-34); BUN/Creatinine Ratio 19 Ratio (12-20); Bilirubin,Total 1.1 mg/dL (0.3-1.2); Blood Urea Nitrogen 19 mg/dL (9-23); Calcium 9.5 mg/dL (8.3-10.6); Calcium (Corrected) 9.6 mg/dL (8.5-10.1); Carbon Dioxide 26.7 mMol/L (20.0-31.0); Chloride 103 mMol/L (98-107); Estimated Creatinine Clearance 63.4 mL/min (>60); Globulin 3.4 gm/dL (2.3-3.5); Glucose 138 mg/dL (74-106); Osmolality,Calculated 281 (275-295); Phosphorous 2.8 mg/dL (2.4-5.1); Potassium 3.2 mMol/L (3.4-5.1); Procalcitonin 0.08 ng/ml (0.0-0.49); Sodium 139 mMol/L (136-145); Total Protein 7.3 gm/dL (5.7-8.2); eGFR > 60 See Note
[2024-08-31] MEDS: POTASSIUM CHL 10 mEq IVPB 10 MEQ/100 ML BAG 100 MEQ IV ×3 (05:14→10:22)
[2024-08-31 06:21] LABS: Collection Type, Urine Catheter; Squamous Epithelial Cell,Urine 0 /hpf (0-5)
--- NOTE | 2024-08-31 06:22 | PC.NURSE ---
PASTOR called due to patient having temp of 101.4, HR in low 100s. Sepsis alert was called.
[2024-08-31 06:34] LABS: Bacteria,Urine Rare; Bilirubin,Urine Negative (Negative); Blood,Urine 3+ (Negative); Clarity,Urine Clear (Clear/Hazy); Color,Urine Yellow (Lt Yel-Yel); Glucose, Urine Negative (Negative); Ketones,Urine Negative (Negative); Leukocyte Esterase,Urine Positive (Negative); Nitrite,Urine Negative (Negative); PH,Urine 5.5 (5.0-7.0); Protein,Urine Trace (Neg - Trace); RBC,Urine 147 /hpf (0-3); Specific Gravity,Urine 1.026 (1.001-1.035); Urobilinogen,Urine Negative mg/dL (0.0-1.0); WBC,Urine 4 /hpf (0-5)
[2024-08-31] MEDS: POTASSIUM CHL 10 mEq IVPB 10 MEQ/100 ML BAG 50 MEQ IV (07:50)
[2024-08-31] MEDS: FINASTERIDE 5 MG TABLET PO (08:38)
[2024-08-31] MEDS: KETOCONAZOLE CR 2% 15 GM TUBE TOP (08:38)
[2024-08-31] MEDS: PROPRANOLOL 10 MG TABLET PO ×2 (08:38→20:17)
[2024-08-31] MEDS: SERTRALINE HCL 25 MG TABLET 50 MG PO (08:38)
[2024-08-31] MEDS: PANTOPRAZOLE 40 MG TABLET PO (08:38)
[2024-08-31] MEDS: TAMSULOSIN HCL 0.4 MG CAPSULE PO ×2 (08:38→20:17)
--- NOTE | 2024-08-31 13:52 | ESPR_ITS ---
<Statement entered by Lina Fish MD - 08/31/24 16:33> Overnight, patient had a sepsis alert initiated after patient back to fever and was tachycardic. Patient had a chest x-ray showed no infectious etiology. Patient will continue with IV Vanco and Zosyn for broad-spectrum antibiotic coverage. Patient seen and examined at bedside. Patient is more stable and less anxious at bedside. Per urology, will stop continuous bladder irrigation, and have a trial of voiding prior to discharge. Recommended patient to have a follow-up appointment with his urologist, Dr. Ha outpatient. Patient will complete Sheikh cath drainage of 5 days tomorrow, and will reevaluate status post results of cultures. I discussed with and supervised the editing internship physician who took care of this patient. I personally saw and examined the patient and discussed the assessment and plan with the entire medicine team, including my attending Dr. , I agree with most of the assessment and plan as documented below Lina Fish M.D. PGY-2 Disclaimer: Despite multiple revisions, due to the dictation software being used, the document bellow may not be free of grammatical errors including phonetic/typographic errors. However, this does not deter from our commitment to providing health care in the patient's best interest in mind. Documentation for date of: 08/31/24 Subjective Subjective Interval history: Overnight: Patient experienced sleep. Was given x 1, still with difficulty sleeping. Patient has been tachycardic with fever of 101, sepsis alert called. Several labs are taken including cultures, chest x-ray taken, patient started on Zosyn, given IV bolus. Patient seen and examined at bedside. Patient resting comfortably, endorses mild anxiety improved from last night. Patient endorsed discomfort due to to Sheikh cath. Denies fevers, chills, chest pain, shortness of breath, abdominal pain, nausea, vomiting. Cultures pending. Per urology, will continue Sheikh cath for now, patient needs to follow-up outpatient with urologist who performed TURP procedure. Exam Vital Signs Temp Pulse Resp BP Pulse Ox O2 Del Method O2 Flow Rate 97.8 F 73 21 H 113/64 97 Nasal Cannula 0 08/31/24 12:00 08/31/24 12:00 08/31/24 12:00 08/31/24 12:00 08/31/24 12:00 08/31/24 12:00 08/31/24 12:00 Narrative Exam PE: Gen: Well-developed and well-nourished. HEENT: NCAT, PERRLA, EOMI, MMM, anicteric conjunctivae. CVS: normal S1 and S2. RRR. No M/R/G. Resp: CTA B/L. No rhonchi, rales, crackles or wheezing. Abd: soft, non-tender, non-distended. Small umbilical hernia. MSK: Good ROM in BUE & BLE. No edema or rash. 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 Soles of bilateral feet peeling with fungal infection, worse on the left. Neuro: CN II-XII grossly intact. Strength 5/5 in BUE & BLE. Alert and oriented x3. Moderate tremors bilateral hands. Tongue fasciculations. Twitching of mouth. Psych: appropriate mood and affect. Objective Labs 08/31/24 03:03 08/31/24 03:03 Labs: Laboratory Results - last 24 hr 08/31/24 08/31/24 03:03 05:55 WBC 10.3 D RBC 5.07 Hgb 15.2 Hct 42.6 MCV 84 MCH 30.0 MCHC 35.7 RDW Std Deviation 43.3 Plt Count 248 Neut % (Auto) 86 H Lymph % (Auto) 3 L [place] % (Auto) 8 Eos % (Auto) 2 Baso % (Auto) 0 Neut # (Auto) 8.9 H Lymph # (Auto) 0.3 L [place] # (Auto) 0.9 H Eos # (Auto) 0.2 Baso # (Auto) 0.0 Immature Gran # (Auto) 0.03 H Absolute Nucleated RBC 0.00 Immature Gran % 0 Nucleated RBC % 0 Sodium 139 Potassium 3.2 L Chloride 103 Carbon Dioxide 26.7 Anion Gap 9 BUN 19 Creatinine 1.0 Estim Creat Clear Calc 63.4 eGFR > 60 BUN/Creatinine Ratio 19 Glucose 138 H Calculated Osmolality 281 Lactic Acid 1.4 Calcium 9.5 Corrected Calcium 9.6 Phosphorus 2.8 Total Bilirubin 1.1 AST 25 ALT 41 Alkaline Phosphatase 96 Total Protein 7.3 Albumin 3.9 Globulin 3.4 Albumin/Globulin Ratio 1.1 L Procalcitonin 0.08 Ur Collection Type Catheter Urine Color Yellow Urine Clarity Clear Urine pH 5.5 Ur Specific [place] 1.026 Urine Protein Trace Urine Glucose (UA) Negative Urine Ketones Negative Urine Blood 3+ A Urine Nitrite Negative Urine Bilirubin Negative Urine Urobilinogen (Auto) Negative Ur Leukocyte Esterase Positive Urine RBC 147 H Urine WBC 4 Ur Squamous Epith Cells 0 Urine Bacteria Rare Quality Measures Quality Measures VTE prophylaxis Advance care planning discussed with:: patient Assessment & Plan Assessment Current Active Medications: Generic Name Dose Route Start Last Admin Trade Name Freq PRN Reason Stop Dose Admin Acetaminophen 650 mg 08/28/24 02:25 08/31/24 03:22 Acetaminophen 325 Mg Tablet PO 09/27/24 02:24 650 mg Q6H PRN Administration Fever >101.5 Acetaminophen 650 mg 08/28/24 02:25 Acetaminophen 325 Mg Tablet PO 09/27/24 02:24 Q6H PRN PAIN SCALE 1-3 (mild Finasteride 5 mg 08/30/24 13:30 08/31/24 08:38 Finasteride 5 Mg Tablet PO 09/29/24 13:29 5 mg QDAY ANNAMARIE Administration Hydralazine HCl 10 mg 08/28/24 03:23 Hydralazine Inj 20 Mg/Ml Vial IV 09/27/24 03:29 Q2H PRN SBP > 180mmHg Piperacillin/Tazobactam/Dextrose 50 mls @ 12.5 mls/hr 08/31/24 14:00 Zosyn IV 09/07/24 13:59 Q8HR ANNAMARIE Ketoconazole 0 gm 08/28/24 14:15 08/31/24 08:38 Ketoconazole Cr 2% 15 Gm Tube TOP 09/27/24 14:14 1 applicatio QDAY ANNAMARIE Administration Melatonin 3 mg 08/28/24 21:00 08/30/24 20:44 Melatonin 3 Mg Tablet PO 09/27/24 20:59 3 mg HS ANNAMARIE Administration Ondansetron HCl 4 mg 08/28/24 02:25 Ondansetron Inj 2 Mg/Ml Inj 2 Ml IV 09/27/24 02:24 Q6H PRN NAUSEA OR VOMITING Protocol Oxycodone/Acetaminophen 1 tab 08/28/24 02:25 08/30/24 00:08 Oxycodone/Apap 5/325 Tablet PO 09/02/24 02:24 1 tab Q6H PRN Administration PAIN SCALE 4-6 (Moderate Pantoprazole Sodium 40 mg 08/28/24 09:00 08/31/24 08:38 Pantoprazole 40 Mg Tablet PO 09/27/24 08:59 40 mg QDAY ANNAMARIE Administration Propranolol HCl 10 mg 08/29/24 11:00 08/31/24 08:38 Propranolol 10 Mg Tablet PO 09/28/24 10:59 10 mg BID ANNAMARIE Administration Quetiapine Fumarate 12.5 mg 08/30/24 21:00 08/30/24 20:44 Quetiapine Fumarate 25 Mg Tablet PO 09/29/24 20:59 12.5 mg HS ANNAMARIE Administration Sertraline HCl 50 mg 08/30/24 09:00 08/31/24 08:38 Sertraline Hcl 25 Mg Tablet PO 09/29/24 08:59 50 mg QDAY ANNAMARIE Administration Tamsulosin HCl 0.4 mg 08/30/24 15:15 08/31/24 08:38 Tamsulosin Hcl 0.4 Mg Capsule PO 09/29/24 15:14 0.4 mg QDAY ANNAMARIE Administration Plan 84-year-old male patient known case of hypertension, Parkinson's disease, 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 Patient reported that he noticed blood in his urine 2 months. Patient was admitted for severe hematuria. #Potential sepsis SIRS 2/4 Patient had a rapid response called overnight due to meeting SIRS criteria: Tachycardia and fever. Blood and urine cultures taken. Lactic acid 0.4, Pro- Alvaro 0.08. Chest x-ray unremarkable. Patient not complaining of any specific signs/symptoms of infection. Antibiotics initiated. Patient received IV bolus. -Zosyn 3.375 g every 8 hours (started 08/31) -Follow-up cultures #Hematuria, resolved #BPH s/p TURP #Urinary bladder cancer rule out Patient vital stable, hemoglobin stable at 16.7, WBC borderline at 10.2, no fever or chills however CT scan showed perinephric stranding and urinary bladder wall thickened. Patient has been having hematuria for the past 2 months, getting progressively worse and eventually developing clots, hemoglobin stable. Patient endorses pain to urination only when passing a clot. No suprapubic tenderness/distention. Contacted Dr. Castro neurologist with [facility] in [place], recommended admit patient for 48 hours about irrigation. If hematuria does not resolve by then, states. He also transferred to [place] for further inpatient management. If hematuria resolves within 48 hours, may discharge patient for outpatient urology follow-up. Dr Parker urology consulted. Recommended discontinuing bladder irrigation, keep Sheikh in place for 7 days for bladder decompression. Records requested from [facility]. Urine culture negative, antibiotics discontinued. -Dr Parker consulted, appreciate recommendations -Pain management as per protocol -Flomax 0.4 mg p.o. twice daily -Finasteride 5 mg p.o. daily -Continue Sheikh cath -Patient needs to follow-up outpatient with urologist Dr. Jean Paul Ha, needs to receive referral from PCP #Hypokalemia?resolved On presentation patient potassium level was 3.0, he was given 1 dose of 40 mEq of potassium p.o. Repleted potassium with another dose of 40 mEq of potassium p.o. -Daily BMP -Replete as needed #Transaminitis?resolved Patient was noticed to have elevated AST and ALT 36 and 65 respectively, CT scan did not show on the liver lesion or irregularity on liver contour Alk phos and total bilirubin are within normal limits Acute hepatitis panel negative. LFTs down trended to WNL. #Bilateral tinea pedis Patient has fungal growth with skin peeling on bilateral soles of feet. Patient states that due to his depression he has not changed his socks for at least 2 weeks. Patient and family are unaware of infection. Patient does not complain of pain in the feet. -Wound care -Ketoconazole cream #Parkinson's disease Patient recently diagnosed with Parkinson's disease. Patient does take outpatient medications, claims that the side effects are so severe he prefers to do with the tremors. On exam patient has moderate bilateral hand tremors, tongue fasciculations, mouth twitch. -Outpatient follow-up with neurology #Hypertension Patient history as stated. -Hydralazine 10 mg IV as needed every 2 hours if SBP more than 180 mmHg -Propranolol 10 mg p.o. twice daily #History of depression Patient history as stated. Patient reports feeling anxious and also depressed at this time. -Sertraline 50 mg p.o. daily DVT prophylaxis: SCDs GI prophylaxis: Protonix Diet: Regular Lines: Peripheral IV, three-way catheter Code status: Full code Plan of care discussed with senior resident Dr. Fish PGY?[address] Pandey. Isacc Ames MD PGY?1 Attending Provider Attestation/Addendum Starr Patel, DO, attest that I was physically present for the kearney portions of the service and evaluated the patient with the resident and I reviewed and discussed the case with the resident and agree with the resident's findings and plans of care as documented above Patient seen and evaluated this a.m. Patient was noted to have fever overnight and sepsis alert was called. Cultures were obtained. UA is negative for any UTI. Will follow-up with final cultures and sensitivities. Patient currently has no acute complaints. Case was discussed with urology as he had received the patient's [address] Jean Paul Ha at [facility]. Recommends continuing with sheikh catheter and for patient to f/u with Dr. Ha outpatient for voiding trial as patient's surgery was reportedly quite complicated. Patient will need to go home with sheikh catheter and need HHC on discharge.
[2024-08-31] MEDS: PIPER/TAZO 3.375 GM PREMIX 50 ML IV ×2 (14:11→21:19)
[2024-08-31] MEDS: MELATONIN 3 MG TABLET PO (20:17)
[2024-08-31] MEDS: BENZONATATE 100 MG CAPSULE PO (20:57)
[2024-08-31] MEDS: DiphenhydrAMINE INJ 50 MG/ML VIAL 12.5 MG IV (23:54)
[2024-09-01] VITALS (13 sets, daily range): BP systolic 122–142; BP diastolic 63–80; PULSE 60–92; RESP 16–21; TEMP 36–37.1; O2SAT 93–97; BMI 29.6
[2024-09-01] MEDS: PIPER/TAZO 3.375 GM PREMIX 50 ML IV ×3 (05:09→21:14)
[2024-09-01] MEDS: BENZONATATE 100 MG CAPSULE PO ×2 (05:12→21:15)
[2024-09-01 06:45] LABS: Alanine Aminotransferase 29 U/L (10-49); Albumin, Serum 3.4 gm/dL (3.4-4.8); Albumin/Globulin Ratio 1.2 (1.2-2.2); Alkaline Phosphatase 72 U/L (46-116); Anion Gap 9 (7-16); Aspartate Amino Transferase 21 U/L (0-34); BUN/Creatinine Ratio 16 Ratio (12-20); Blood Urea Nitrogen 16 mg/dL (9-23); Calcium 8.4 mg/dL (8.3-10.6); Calcium (Corrected) 8.9 mg/dL (8.5-10.1); Chloride 100 mMol/L (98-107); Estimated Creatinine Clearance 63.4 mL/min (>60); Globulin 2.8 gm/dL (2.3-3.5); Glucose 118 mg/dL (74-106); Magnesium 1.7 mg/dL (1.6-2.6); Osmolality,Calculated 276 (275-295); Phosphorous 3.1 mg/dL (2.4-5.1); Potassium 3.2 mMol/L (3.4-5.1); Sodium 137 mMol/L (136-145); Total Protein 6.2 gm/dL (5.7-8.2); eGFR > 60 See Note
[2024-09-01 07:01] LABS: Basophils % (Auto) 0 % (0-2.5); Eosinophils # (Auto) 0.2 Thou/mm3 (0.0-0.5); Eosinophils % (Auto) 2 % (0-10); Hemoglobin 13.6 g/dL (13.5-16.0); Immature Granulocytes % (Auto) 0 % (0-0); Immature Granulocytes Auto 0.01 Thou/mm3 (0.00-0.00); Lymphocytes # (Auto) 0.8 Thou/mm3 (1.0-4.8); Lymphocytes % (Auto) 11 % (10-50); Mean Corpuscular HGB Conc 34.9 g/dl (31.0-37.0); Mean Corpuscular Hemoglobin 29.6 pg (25.0-35.0); Mean Corpuscular Volume 85 fL (80-100); Monocytes # (Auto) 0.9 Thou/mm3 (0.0-0.8); Monocytes % (Auto) 13 % (0-12); Neutrophils # (Auto) 4.9 Thou/mm3 (1.8-7.7); Neutrophils % (Auto) 73 % (37-80); Nucleated Red Blood Cell % 0 /100 WBC (0); Platelet Count 225 Thou/mm3 (140-440); White Blood Count 6.8 Thou/mm3 (3.8-10.6)
[2024-09-01] MEDS: FINASTERIDE 5 MG TABLET PO (08:57)
[2024-09-01] MEDS: PANTOPRAZOLE 40 MG TABLET PO (08:58)
[2024-09-01] MEDS: POTASSIUM CHLORIDE 20 mEq TABCR 40 MEQ PO (08:58)
[2024-09-01] MEDS: SERTRALINE HCL 25 MG TABLET 50 MG PO (08:58)
[2024-09-01] MEDS: TAMSULOSIN HCL 0.4 MG CAPSULE PO ×2 (08:58→20:01)
[2024-09-01] MEDS: PROPRANOLOL 10 MG TABLET PO ×2 (08:59→20:01)
[2024-09-01] MEDS: KETOCONAZOLE CR 2% 15 GM TUBE TOP (09:00)
[2024-09-01] MEDS: BusPIRone HCL 5 MG TABLET 7.5 MG PO ×2 (13:32→21:15)
--- NOTE | 2024-09-01 14:49 | PC.SS ---
Rounding note: pending Dr. Quan consult.
--- NOTE | 2024-09-01 14:57 | ESPR_ITS ---
<Statement entered by Lina Fish MD - 09/01/24 15:38> I discussed with and supervised the exercise science internship physician who took care of this patient. I personally saw and examined the patient and discussed the assessment and plan with the entire medicine team, including my attending , I agree with most of the assessment and plan as documented below Lina Fish M.D. PGY-2 Documentation for date of: 09/01/24 Subjective Subjective Interval history: No overnight events. Patient seen examined at bedside, expresses extreme anxiety. Patient denies fever, chills, shortness of breath. No hematuria seen in Phillip cath. Extensive reassurance was provided to patient regarding condition. Resume home buspirone. Spoke with Dr. Parker urology, plan to DC patient with Phillip cath. Need to speak to patient PCP to arrange urgent referral to urology. Exam Vital Signs Temp Pulse Resp BP Pulse Ox O2 Del Method O2 Flow Rate 98.7 F 92 21 H 140/80 H 97 Nasal Cannula 3 09/01/24 11:36 09/01/24 12:23 09/01/24 12:23 09/01/24 11:36 09/01/24 12:23 09/01/24 11:36 09/01/24 12:23 Narrative Exam PE: Gen: Well-developed and well-nourished. HEENT: NCAT, PERRLA, EOMI, MMM, anicteric conjunctivae. CVS: normal S1 and S2. RRR. No M/R/G. Resp: CTA B/L. No rhonchi, rales, crackles or wheezing. Abd: soft, non-tender, non-distended. Small umbilical hernia. MSK: Good ROM in BUE & BLE. No edema or rash. 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 Soles of bilateral feet peeling with fungal infection, worse on the left. Neuro: CN II-XII grossly intact. Strength 5/5 in BUE & BLE. Alert and oriented x3. Moderate tremors bilateral hands. Tongue fasciculations. Twitching of mouth. Psych: appropriate mood and affect. Objective Labs 09/01/24 06:20 09/01/24 05:01 Labs: Laboratory Results - last 24 hr 09/01/24 09/01/24 05:01 06:20 WBC 6.8 RBC 4.60 Hgb 13.6 Hct 39.0 L MCV 85 MCH 29.6 MCHC 34.9 RDW Std Deviation 45.0 H Plt Count 225 Neut % (Auto) 73 Lymph % (Auto) 11 [place] % (Auto) 13 H Eos % (Auto) 2 Baso % (Auto) 0 Neut # (Auto) 4.9 Lymph # (Auto) 0.8 L [place] # (Auto) 0.9 H Eos # (Auto) 0.2 Baso # (Auto) 0.0 Immature Gran # (Auto) 0.01 H Absolute Nucleated RBC 0.00 Immature Gran % 0 Nucleated RBC % 0 Sodium 137 Potassium 3.2 L Chloride 100 Carbon Dioxide 28.0 Anion Gap 9 BUN 16 Creatinine 1.0 Estim Creat Clear Calc 63.4 eGFR > 60 BUN/Creatinine Ratio 16 Glucose 118 H Calculated Osmolality 276 Calcium 8.4 Corrected Calcium 8.9 Phosphorus 3.1 Magnesium 1.7 Total Bilirubin 1.0 AST 21 ALT 29 Alkaline Phosphatase 72 D Total Protein 6.2 Albumin 3.4 D Globulin 2.8 Albumin/Globulin Ratio 1.2 Quality Measures Quality Measures VTE prophylaxis Advance care planning discussed with:: patient Assessment & Plan Assessment Current Active Medications: Generic Name Dose Route Start Last Admin Trade Name Kalli PRN Reason Stop Dose Admin Acetaminophen 650 mg 08/28/24 02:25 08/31/24 03:22 Acetaminophen 325 Mg Tablet PO 09/27/24 02:24 650 mg Q6H PRN Administration Fever >101.5 Acetaminophen 650 mg 08/28/24 02:25 Acetaminophen 325 Mg Tablet PO 09/27/24 02:24 Q6H PRN PAIN SCALE 1-3 (mild Benzonatate 100 mg 08/31/24 20:24 09/01/24 05:12 Benzonatate 100 Mg Capsule PO 09/30/24 20:23 100 mg Q8HR PRN Administration COUGH Protocol Buspirone HCl 7.5 mg 09/01/24 14:00 09/01/24 13:32 Buspirone Hcl 5 Mg Tablet PO 10/01/24 13:59 7.5 mg TID ANNAMARIE Administration Finasteride 5 mg 08/30/24 13:30 09/01/24 08:57 Finasteride 5 Mg Tablet PO 09/29/24 13:29 5 mg QDAY ANNAMARIE Administration Hydralazine HCl 10 mg 08/28/24 03:23 Hydralazine Inj 20 Mg/Ml Vial IV 09/27/24 03:29 Q2H PRN SBP > 180mmHg Piperacillin/Tazobactam/Dextrose 50 mls @ 12.5 mls/hr 08/31/24 14:00 09/01/24 13:32 Zosyn IV 09/07/24 13:59 12.5 mls/hr Q8HR ANNAMARIE Administration Ketoconazole 0 gm 08/28/24 14:15 09/01/24 09:00 Ketoconazole Cr 2% 15 Gm Tube TOP 09/27/24 14:14 1 applicatio QDAY ANNAMARIE Administration Melatonin 3 mg 08/28/24 21:00 08/31/24 20:17 Melatonin 3 Mg Tablet PO 09/27/24 20:59 3 mg HS ANNAMARIE Administration Ondansetron HCl 4 mg 08/28/24 02:25 Ondansetron Inj 2 Mg/Ml Inj 2 Ml IV 09/27/24 02:24 Q6H PRN NAUSEA OR VOMITING Protocol Oxycodone/Acetaminophen 1 tab 08/28/24 02:25 08/30/24 00:08 Oxycodone/Apap 5/325 Tablet PO 09/02/24 02:24 1 tab Q6H PRN Administration PAIN SCALE 4-6 (Moderate Pantoprazole Sodium 40 mg 08/28/24 09:00 09/01/24 08:58 Pantoprazole 40 Mg Tablet PO 09/27/24 08:59 40 mg QDAY ANNAMARIE Administration Propranolol HCl 10 mg 08/29/24 11:00 09/01/24 08:59 Propranolol 10 Mg Tablet PO 09/28/24 10:59 10 mg BID ANNAMARIE Administration Sertraline HCl 50 mg 08/30/24 09:00 09/01/24 08:58 Sertraline Hcl 25 Mg Tablet PO 09/29/24 08:59 50 mg QDAY ANNAMARIE Administration Tamsulosin HCl 0.4 mg 08/31/24 21:00 09/01/24 08:58 Tamsulosin Hcl 0.4 Mg Capsule PO 09/30/24 20:59 0.4 mg BID ANNAMARIE Administration Plan 84-year-old male patient known case of hypertension, Parkinson's disease, 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 Patient reported that he noticed blood in his urine 2 months. Patient was admitted for severe hematuria. #Potential sepsis SIRS 2/ Patient had a rapid response called overnight due to meeting SIRS criteria: Tachycardia and fever. Blood and urine cultures taken. Lactic acid 0.4, Pro- Alvaro 0.08. Chest x-ray unremarkable. Patient not complaining of any specific signs/symptoms of infection. Antibiotics initiated. Patient received IV bolus. -Zosyn 3.375 g every 8 hours (started 08/31) -Follow-up cultures #Hematuria, resolved #BPH s/p TURP #Urinary bladder cancer rule out Patient vital stable, hemoglobin stable at 16.7, WBC borderline at 10.2, no fever or chills however CT scan showed perinephric stranding and urinary bladder wall thickened. Patient has been having hematuria for the past 2 months, getting progressively worse and eventually developing clots, hemoglobin stable. Patient endorses pain to urination only when passing a clot. No suprapubic tenderness/distention. Contacted Dr. Castro neurologist with [facility] in [place], recommended admit patient for 48 hours about irrigation. If hematuria does not resolve by then, states. He also transferred to [place] for further inpatient management. If hematuria resolves within 48 hours, may discharge patient for outpatient urology follow-up. Dr Parker urology consulted. Recommended discontinuing bladder irrigation, keep Phillip in place for 7 days for bladder decompression. [facility] Urine culture negative, antibiotics discontinued. -Dr Parker consulted, appreciate recommendations -Pain management as per protocol -Flomax 0.4 mg p.o. twice daily -Finasteride 5 mg p.o. daily -Continue Phillip cath -Patient needs to follow-up outpatient with urologist Dr. Jean Paul Ha, needs to receive referral from PCP #Hypokalemia?resolved On presentation patient potassium level was 3.0, he was given 1 dose of 40 mEq of potassium p.o. Repleted potassium with another dose of 40 mEq of potassium p.o. -Daily BMP -Replete as needed #Transaminitis?resolved Patient was noticed to have elevated AST and ALT 36 and 65 respectively, CT scan did not show on the liver lesion or irregularity on liver contour Alk phos and total bilirubin are within normal limits Acute hepatitis panel negative. LFTs down trended to WNL. #Bilateral tinea pedis Patient has fungal growth with skin peeling on bilateral soles of feet. Patient states that due to his depression he has not changed his socks for at least 2 weeks. Patient and family are unaware of infection. Patient does not complain of pain in the feet. -Wound care -Ketoconazole cream #Parkinson's disease Patient recently diagnosed with Parkinson's disease. Patient does take outpatient medications, claims that the side effects are so severe he prefers to do with the tremors. On exam patient has moderate bilateral hand tremors, tongue fasciculations, mouth twitch. -Outpatient follow-up with neurology #Hypertension Patient history as stated. -Hydralazine 10 mg IV as needed every 2 hours if SBP more than 180 mmHg -Propranolol 10 mg p.o. twice daily #History of depression #History of anxiety Patient history as stated. Patient reports feeling anxious and also depressed at this time. -Sertraline 50 mg p.o. daily -Buspirone 7.5 mg p.o. 3 times daily DVT prophylaxis: SCDs GI prophylaxis: Protonix Diet: Regular Lines: Peripheral IV, three-way catheter Code status: Full code Plan of care discussed with senior resident Dr. Fish PGY?[address] Kasper. Isacc Ames MD PGY?1 Attending Provider Attestation/Addendum I attest that I was physically present for the evaluation, physical examination, lab and imaging review of the patient with the residents. I discussed the case with the residents and agree with the findings and plans of care as documented above. At bedside today, patient continues to complain of severe anxiety. Resumed his home buspirone. Continues to be on Phillip catheter, with clear urine. Continues to be on IV Zosyn, has been afebrile for more than 24 hours. Procalcitonin has been negative, still unable to find definite infectious source. Possibly episode of viral infection. Awaiting blood and urine cultures. Continues to be on propranolol sertraline and buspirone for his anxiety. Discussed with neurology, we will plan for discharge with Phillip catheter once the cultures are negative for more than 48 hours. Jorge Kasper MD
--- NOTE | 2024-09-01 17:12 | PC.CC ---
Addendum entered by Elvie Baumann RN 09/02/24 17:46: discard the 2 previous notes, charted on wrong date. Addendum entered by Elvie Baumann RN 09/02/24 17:43: 1734 called [facility], spoke to Deysi to get accepting Dr. elise. Pt is accepted by Dr. Gonzalez. 1721 received call from [facility], spoke to Regi. She stated she has the bed for the pt. Pt is going to [facility]. Room 4234. Call report at [phone]. Addendum entered by Earlene Saldana RN 09/01/24 19:37: Urologist Dr. Edgar accepted the patient to [facility], waiting on hospitalist to accept Addendum entered by Earlene Saldana RN 09/01/24 18:37: [facility] called back at this time and asked more information, states they will call back with peer to peer Original Note: 1704- Spoke to Betito at [facility] and chart faxed 1706- Made aware by Dr. Alicia patient needs to be transferred for urology for dx of hematuria status post turp from 2014, Dr. Castro from [facility] stated he would accept if pt hematuria did not improve from the seventh.
[2024-09-01] MEDS: DiphenhydrAMINE INJ 50 MG/ML VIAL 12.5 MG IV (21:14)
[2024-09-02] VITALS (10 sets, daily range): BP systolic 114–136; BP diastolic 62–83; PULSE 63–92; RESP 15–19; TEMP 36.1–36.7; O2SAT 96–98
--- NOTE | 2024-09-02 00:31 | PC.NURSE ---
MD Hillman made aware regarding pt having hematuria on the sheikh, no blood clots noted. No new order made at this time.
[2024-09-02] MEDS: PIPER/TAZO 3.375 GM PREMIX 50 ML IV (05:17)
[2024-09-02] MEDS: BusPIRone HCL 5 MG TABLET 7.5 MG PO ×2 (05:17→13:34)
[2024-09-02 05:59] LABS: Basophils % (Auto) 0 % (0-2.5); Eosinophils # (Auto) 0.2 Thou/mm3 (0.0-0.5); Eosinophils % (Auto) 3 % (0-10); Hematocrit 40.2 % (41.0-53.0); Immature Granulocytes % (Auto) 0 % (0-0); Immature Granulocytes Auto 0.01 Thou/mm3 (0.00-0.00); Lymphocytes # (Auto) 0.8 Thou/mm3 (1.0-4.8); Lymphocytes % (Auto) 12 % (10-50); Mean Corpuscular HGB Conc 34.8 g/dl (31.0-37.0); Mean Corpuscular Hemoglobin 29.5 pg (25.0-35.0); Mean Corpuscular Volume 85 fL (80-100); Monocytes # (Auto) 0.9 Thou/mm3 (0.0-0.8); Monocytes % (Auto) 13 % (0-12); Neutrophils # (Auto) 4.9 Thou/mm3 (1.8-7.7); Neutrophils % (Auto) 72 % (37-80); Nucleated Red Blood Cell % 0 /100 WBC (0); Platelet Count 228 Thou/mm3 (140-440); RDW Standard Deviation 44.2 fL (35.1-43.9); Red Blood Count 4.74 Miln/mm3 (4.50-5.90); White Blood Count 6.8 Thou/mm3 (3.8-10.6)
[2024-09-02 06:06] LABS: INR 1.1 (0.9-1.3); Partial Thromboplastin Time 29.4 Seconds (22.0-36.0); Prothrombin Time 12.3 Seconds (9.0-12.2)
[2024-09-02 06:29] LABS: Alanine Aminotransferase 38 U/L (10-49); Albumin, Serum 3.6 gm/dL (3.4-4.8); Albumin/Globulin Ratio 1.2 (1.2-2.2); Alkaline Phosphatase 69 U/L (46-116); Anion Gap 10 (7-16); Aspartate Amino Transferase 28 U/L (0-34); BUN/Creatinine Ratio 14 Ratio (12-20); Bilirubin,Total 0.9 mg/dL (0.3-1.2); Blood Urea Nitrogen 14 mg/dL (9-23); Calcium (Corrected) 9.3 mg/dL (8.5-10.1); Carbon Dioxide 29.3 mMol/L (20.0-31.0); Chloride 98 mMol/L (98-107); Estimated Creatinine Clearance 62.3 mL/min (>60); Glucose 123 mg/dL (74-106); Magnesium 1.8 mg/dL (1.6-2.6); Osmolality,Calculated 275 (275-295); Phosphorous 3.2 mg/dL (2.4-5.1); Potassium 3.4 mMol/L (3.4-5.1); Sodium 137 mMol/L (136-145); Total Protein 6.6 gm/dL (5.7-8.2); eGFR > 60 See Note
--- NOTE | 2024-09-02 07:35 | PC.CC ---
Addendum entered by Elvie Baumann RN 09/02/24 17:59: [address] [facility]. Called [facility], spoke to [facility] and setup the transport. stewardess supervisor time is 1999. Addendum entered by Elvie Baumann RN 09/02/24 17:56: 1745 transfer packet is complete with CD inside, only pending pt signature. Addendum entered by Elvie Baumann RN 09/02/24 17:44: 1734 called [facility], spoke to Deysi to get accepting Dr. elise. Pt is accepted by Dr. Gonzalez. 1721 received call from [facility], spoke to Regi. She stated she has the bed for the pt. Pt is going to [facility]. Room 4234. Call report at [phone]. Addendum entered by Elvie Baumann RN 09/02/24 16:11: 1528 received call from [facility] that her urologist Dr. Corbin Simmons wants to speak with Dr. Ksaper for peer to peer. Conference call connected. Addendum entered by Elvie Baumann RN 09/02/24 15:04: 1450 spoke to Keren at [facility] and informed her. 1446 Dr. Kasper called me back and stated he spoke to Dr. Sena and per Dr. Kasper, Dr. Sena stated their is no urology environmental maintenance worker currently. 1437 called and spoke to Dr. Kasper and informed conversation with [facility]. He stated he will call Dr. Sena and call me back. 1430 received call from Ke[facility], asking if we have the urology why we are transferring the pt. What is that our urology can't do and their's can. I saw notes and spoke to yesterday's transfer nurse it's because hematuria was worse and pt had hx of TURP. I let transfer nurse at [facility] know that I will speak to hospitalist and call her back. Original Note: 3363 received call from [facility], asked for update. Pt is accepted but still pending bed availability.
[2024-09-02] MEDS: PROPRANOLOL 10 MG TABLET PO (08:50)
[2024-09-02] MEDS: TAMSULOSIN HCL 0.4 MG CAPSULE PO (08:51)
[2024-09-02] MEDS: FINASTERIDE 5 MG TABLET PO (08:51)
[2024-09-02] MEDS: PANTOPRAZOLE 40 MG TABLET PO (08:51)
[2024-09-02] MEDS: SERTRALINE HCL 25 MG TABLET 50 MG PO (08:51)
[2024-09-02] MEDS: KETOCONAZOLE CR 2% 15 GM TUBE TOP (09:28)
--- NOTE | 2024-09-02 14:30 | ESPR_ITS ---
<Statement entered by Lina Fish MD - 09/02/24 15:38> I discussed with and supervised the sales and marketing intern physician who took care of this patient. I personally saw and examined the patient and discussed the assessment and plan with the entire medicine team, including my attending Dr. Kasper, I agree with most of the assessment and plan as documented below Lina Fish M.D. PGY-2 Documentation for date of: 09/02/24 Subjective Subjective Interval history: Overnight: Patient found to have new onset of farida hematuria. Patient's versus feels the need to urinate despite Phillip cath. Dr Parker consulted, recommending a transfer. Patient seen at bedside, resting comfortably. Endorses only mild anxiety. Phillip cath bag shows gross hematuria, but urine in the tube is dark brown not bloody. No clots. Pending transfer to [facility]. Exam Vital Signs Temp Pulse Resp BP Pulse Ox O2 Del Method O2 Flow Rate 97.4 F 68 16 121/73 97 Nasal Cannula 2.5 09/02/24 12:00 09/02/24 12:00 09/02/24 12:00 09/02/24 12:00 09/02/24 12:00 09/02/24 12:00 09/02/24 12:00 Narrative Exam PE: Gen: Well-developed and well-nourished. HEENT: NCAT, PERRLA, EOMI, MMM, anicteric conjunctivae. CVS: normal S1 and S2. RRR. No M/R/G. Resp: CTA B/L. No rhonchi, rales, crackles or wheezing. Abd: soft, non-tender, non-distended. Small umbilical hernia. MSK: Good ROM in BUE & BLE. No edema or rash. 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 Soles of bilateral feet peeling with fungal infection, worse on the left. Neuro: CN II-XII grossly intact. Strength 5/5 in BUE & BLE. Alert and oriented x3. Moderate tremors bilateral hands. Tongue fasciculations. Twitching of mouth. Psych: appropriate mood and affect. Objective Labs 09/02/24 05:05 09/02/24 05:05 Labs: Laboratory Results - last 24 hr 09/02/24 05:05 WBC 6.8 RBC 4.74 Hgb 14.0 Hct 40.2 L MCV 85 MCH 29.5 MCHC 34.8 RDW Std Deviation 44.2 H Plt Count 228 Neut % (Auto) 72 Lymph % (Auto) 12 Dewitt % (Auto) 13 H Eos % (Auto) 3 Baso % (Auto) 0 Neut # (Auto) 4.9 Lymph # (Auto) 0.8 L Dewitt # (Auto) 0.9 H Eos # (Auto) 0.2 Baso # (Auto) 0.0 Immature Gran # (Auto) 0.01 H Absolute Nucleated RBC 0.00 Immature Gran % 0 Nucleated RBC % 0 PT 12.3 H INR 1.1 APTT 29.4 Sodium 137 Potassium 3.4 Chloride 98 Carbon Dioxide 29.3 Anion Gap 10 BUN 14 Creatinine 1.0 Estim Creat Clear Calc 62.3 eGFR > 60 BUN/Creatinine Ratio 14 Glucose 123 H Calculated Osmolality 275 Calcium 9.0 Corrected Calcium 9.3 Phosphorus 3.2 Magnesium 1.8 Total Bilirubin 0.9 AST 28 ALT 38 Alkaline Phosphatase 69 Total Protein 6.6 Albumin 3.6 Globulin 3.0 Albumin/Globulin Ratio 1.2 Quality Measures Quality Measures VTE prophylaxis Advance care planning discussed with:: patient, spouse and child Assessment & Plan Assessment Current Active Medications: Generic Name Dose Route Start Last Admin Trade Name Freq PRN Reason Stop Dose Admin Acetaminophen 650 mg 08/28/24 02:25 08/31/24 03:22 Acetaminophen 325 Mg Tablet PO 09/27/24 02:24 650 mg Q6H PRN Administration Fever >101.5 Acetaminophen 650 mg 08/28/24 02:25 Acetaminophen 325 Mg Tablet PO 09/27/24 02:24 Q6H PRN PAIN SCALE 1-3 (mild Benzonatate 100 mg 08/31/24 20:24 09/01/24 21:15 Benzonatate 100 Mg Capsule PO 09/30/24 20:23 100 mg Q8HR PRN Administration COUGH Protocol Buspirone HCl 7.5 mg 09/01/24 14:00 09/02/24 13:34 Buspirone Hcl 5 Mg Tablet PO 10/01/24 13:59 7.5 mg TID ANNAMARIE Administration Finasteride 5 mg 08/30/24 13:30 09/02/24 08:51 Finasteride 5 Mg Tablet PO 09/29/24 13:29 5 mg QDAY ANNAMARIE Administration Hydralazine HCl 10 mg 08/28/24 03:23 Hydralazine Inj 20 Mg/Ml Vial IV 09/27/24 03:29 Q2H PRN SBP > 180mmHg Ketoconazole 0 gm 08/28/24 14:15 09/02/24 09:28 Ketoconazole Cr 2% 15 Gm Tube TOP 09/27/24 14:14 1 applicatio QDAY ANNAMARIE Administration Latanoprost 1 drop 09/02/24 21:00 Latanoprost Op Debbie 0.005% 2.5 Ml Btl BOTH EYES 10/02/24 20:59 HS ANNAMARIE Ondansetron HCl 4 mg 08/28/24 02:25 Ondansetron Inj 2 Mg/Ml Inj 2 Ml IV 09/27/24 02:24 Q6H PRN NAUSEA OR VOMITING Protocol Pantoprazole Sodium 40 mg 08/28/24 09:00 09/02/24 08:51 Pantoprazole 40 Mg Tablet PO 09/27/24 08:59 40 mg QDAY ANNAMARIE Administration Propranolol HCl 10 mg 08/29/24 11:00 09/02/24 08:50 Propranolol 10 Mg Tablet PO 09/28/24 10:59 10 mg BID ANNAMARIE Administration Sertraline HCl 50 mg 08/30/24 09:00 09/02/24 08:51 Sertraline Hcl 25 Mg Tablet PO 09/29/24 08:59 50 mg QDAY ANNAMARIE Administration Tamsulosin HCl 0.4 mg 08/31/24 21:00 09/02/24 08:51 Tamsulosin Hcl 0.4 Mg Capsule PO 09/30/24 20:59 0.4 mg BID ANNAMARIE Administration Plan 84-year-old male patient known case of hypertension, Parkinson's disease, 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 Patient reported that he noticed blood in his urine 2 months. Patient was admitted for severe hematuria. #Hematuria, recurrence #BPH s/p TURP #Urinary bladder cancer rule out Patient vital stable, hemoglobin stable at 16.7, WBC borderline at 10.2, no fever or chills however CT scan showed perinephric stranding and urinary bladder wall thickened. Patient has been having hematuria for the past 2 months, getting progressively worse and eventually developing clots, hemoglobin stable. Patient endorses pain to urination only when passing a clot. No suprapubic tenderness/distention. Contacted Dr. Castro neurologist with [facility] in [place], recommended admit patient for 48 hours about irrigation. If hematuria does not resolve by then, states. He also transferred to [place] for further inpatient management. If hematuria resolves within 48 hours, may discharge patient for outpatient urology follow-up. Dr Parker urology consulted. Recommended discontinuing bladder irrigation, keep Phillip in place for 7 days for bladder decompression. Records requested from [facility]. Urine culture negative, antibiotics discontinued. Patient developed recurrence of hematuria, but associated with urge to urinate despite Phillip cath. Dr. Parker was consulted, stated patient needed to be transferred immediately. [facility] agreed to take patient pending bed availability. -Dr Parker consulted, appreciate recommendations -Pain management as per protocol -Flomax 0.4 mg p.o. twice daily -Finasteride 5 mg p.o. daily -Continue Phillip cath -Patient needs to follow-up outpatient with urologist Dr. Jean Paul Ha, needs to receive referral from PCP -Transfer to [facility] #Potential sepsis SIRS 2/4, sepsis ruled out Patient had a rapid response called overnight due to meeting SIRS criteria: Tachycardia and fever. Blood and urine cultures taken. Lactic acid 0.4, Pro- Alvaro 0.08. Chest x-ray unremarkable. Patient not complaining of any specific signs/symptoms of infection. Antibiotics initiated. Patient received IV bolus. Cultures negative. Dizziness continued. #Hypokalemia?resolved On presentation patient potassium level was 3.0, he was given 1 dose of 40 mEq of potassium p.o. Repleted potassium with another dose of 40 mEq of potassium p.o. -Daily BMP -Replete as needed #Transaminitis?resolved Patient was noticed to have elevated AST and ALT 36 and 65 respectively, CT scan did not show on the liver lesion or irregularity on liver contour Alk phos and total bilirubin are within normal limits Acute hepatitis panel negative. LFTs down trended to WNL. #Bilateral tinea pedis Patient has fungal growth with skin peeling on bilateral soles of feet. Patient states that due to his depression he has not changed his socks for at least 2 weeks. Patient and family are unaware of infection. Patient does not complain of pain in the feet. -Wound care -Ketoconazole cream #Parkinson's disease Patient recently diagnosed with Parkinson's disease. Patient does take outpatient medications, claims that the side effects are so severe he prefers to do with the tremors. On exam patient has moderate bilateral hand tremors, tongue fasciculations, mouth twitch. -Outpatient follow-up with neurology #Hypertension Patient history as stated. -Hydralazine 10 mg IV as needed every 2 hours if SBP more than 180 mmHg -Propranolol 10 mg p.o. twice daily #History of depression #History of anxiety Patient history as stated. Patient reports feeling anxious and also depressed at this time. -Sertraline 50 mg p.o. daily -Buspirone 7.5 mg p.o. 3 times daily DVT prophylaxis: SCDs GI prophylaxis: Protonix Diet: Regular Lines: Peripheral IV, three-way catheter Code status: Full code Plan of care discussed with senior resident Dr. Fish PGY?[address] Kasper. Isacc Ames MD PGY?1 Attending Provider Attestation/Addendum I attest that I was physically present for the evaluation, physical examination, lab and imaging review of the patient with the residents. I discussed the case with the residents and agree with the findings and plans of care as documented above. Yesterday evening, patient restarted having feeling of need to void despite having Phillip catheter in. He admits to straining for couple times, later on had new onset farida hematuria. Discussed with urology, recommended transfer to higher center for further management. Discussed with urology and hospitalist in [facility] yesterday, agreed to accept the patient awaiting bed availability. Family at bedside explained in detail about patient's current condition and management plan, patient and family are in agreement. Jorge Kasper MD
--- NOTE | 2024-09-02 15:11 | PC.SS ---
Rounding update: patient is pending HLOC transfer.
--- NOTE | 2024-09-02 18:32 | PC.NURSE ---
Called [facility]. spoke to Guevara at [phone], gave report for transfer and notified of transport set up for 1999.
--- NOTE | 2024-09-02 19:20 | PC.NURSE ---
Pt A&Ox3, able to follow commands, VS stable. Pt is going to be transferred to [facility] in [place], [place]. Pt picked up by 2 [facility] personnel. Pt left with 2 IVs and indwelling sheikh catheter with bladder irrigation and his belongings. No complaints of pain or discomfort at the time of discharge.
--- NOTE | 2024-09-02 20:00 | ESDS_ITS ---
<Statement entered by Lina Fish MD - 09/03/24 07:48> I discussed with and supervised the operations intern physician who took care of this patient. I personally saw and examined the patient and discussed the assessment and plan with the entire medicine team, including my attending Dr. Kasper , I agree with most of the assessment and plan as documented below Lina Fish M.D. PGY-2 Planned Discharge Date 09/02/24 DS: Providers Provider Date of admission: 08/29/24 13:11 Primary care physician: Michele Arteaga MD Admitting Provider: Lis Soto MD Attending Provider on Admission: Jorge Kasper MD Consults: 08/30/24 09:17 Consult to Urology Routine Comment: hematuria Consulting Provider: Maria Esther Parker Attending Provider on DC: Jorge Kasper MD Discharging Provider: Isacc Ames MD DS: Diagnosis Problem List Completed Was Problem List Reviewed/Reconciled?: Yes Hospital Course Hospital Course Hospital course: 84-year-old male patient known case of hypertension, Parkinson's disease, depression, BPH status post surgical intervention 15 years ago presented to the ED due to progressively worsening hematuria on 08/28/12. Patient hematuria slowly progressed to be constant and contain clots. He has not seen an urologist since his TURPs procedure. ED contacted urologist at [facility] Dr. Castro who recommended continuous bladder irrigation, which patient received. Patient initially showed improvement, with pale yellow urine, and CBI was stopped. On hospital day 6 patient developed recurrent hematuria with associated bladder discomfort and strong urge to urinate despite 3- catheter. Urologist Dr. Parker was contacted, who recommended patient be transferred to facility with inhouse urology services. Patient is stable for tansfer to [facility] for further management. Discharge plan: Transfer to [facility] for hematuria, accepted by Dr. Gonzalez Diagnoses: #Hematuria, recurrence #BPH s/p TURP #Urinary bladder cancer rule out #Potential sepsis SIRS 2/4, sepsis ruled out #Hypokalemia?resolved #Transaminitis?resolved #Bilateral tinea pedis #Parkinson's disease #Hypertension #History of depression #History of anxiety Plan of care discussed with senior resident Dr. Fish PGY-[address] Kasper. Isacc Ames MD PGY-1 Time Spent with Patient Time attestation: Total time spent providing and/or coordinating discharge services: Exam Vital Signs Temp Pulse Resp BP Pulse Ox O2 Del Method O2 Flow Rate 97.8 F 63 16 124/79 97 Nasal Cannula 2.5 09/02/24 16:00 09/02/24 16:00 09/02/24 16:00 09/02/24 16:00 09/02/24 16:00 09/02/24 16:09/02/24 16:00 Narrative Exam PE: Gen: Well-developed and well-nourished. HEENT: NCAT, PERRLA, EOMI, MMM, anicteric conjunctivae. CVS: normal S1 and S2. RRR. No M/R/G. Resp: CTA B/L. No rhonchi, rales, crackles or wheezing. Abd: soft, non-tender, non-distended. Small umbilical hernia. MSK: Good ROM in BUE & BLE. No edema or rash. 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 Soles of bilateral feet peeling with fungal infection, worse on the left. Neuro: CN II-XII grossly intact. Strength 5/5 in BUE & BLE. Alert and oriented x3. Moderate tremors bilateral hands. Tongue fasciculations. Twitching of mouth. Psych: appropriate mood and affect. Discharge Plan Plan Patient Disposition: [facility] Facility Pt Being Transferred to: [facility] Service Needed for Transfer: Urology Disposition Comment: for hematuria, accepted by Dr. Gonzalez Patient condition on transfer: Stable Prescriptions/Referrals Prescriptions/Med Rec: New tamsulosin 0.4 mg capsule 0.4 mg PO BID 30 Days Qty: 60 0RF ketoconazole 2 % Cream 1 applic top QDAY 7 Days Qty: 30 0RF Continued chlorthalidone 25 mg tablet 25 mg PO QDAY Patient Comments: TAKE 1 TABLET BY MOUTH IN THE MORNING buspirone 7.5 mg tablet 7.5 mg PO TID Patient Comments: TOME 1 TABLETA POR V A ORAL FLAVIO VECES AL D A doxazosin 4 mg tablet 4 mg PO DAILY Patient Comments: TOME 1 TABLETA POR V A ORAL TODOS LOS D carbidopa-levodopa 25-100 mg tablet Patient Comments: TOME 1 TABLETA POR V A ORAL FLAVIO VECES AL D A sertraline 50 mg tablet 50 mg PO Q24H Patient Comments: TOME 1 TABLETA POR V A ORAL TODOS LOS D benztropine 0.5 mg tablet 0.5 mg PO QDAY Patient Comments: TOME 1 TABLETA POR V A ORAL TODOS LOS D latanoprost 0.005 % drops 1 drp OPHTHALMIC (EYE) HS Patient Comments: APLIQUE PRIYANK GOTA EN LOS DOS OJOS TODOS LOS DAAS AL ACOSTARSE Referrals: Michele Arteaga MD [Primary Care Provider] - Patient/Caregiver Discharge Instructions Discharge Activity: activity as tolerated Other Discharge Diet Instructions: Regular Diet Print Language: German Discharge Order Discharge Orders: Discharge (Routine); Ordered 09/02/24 Ordered By: Reggie Cade Quality Discharge Quality Measures VTE prophylaxis MD Attestestation MD Attestation I attest that I was physically present for the evaluation, physical examination, lab and imaging review of the patient with the residents. I discussed the case with the residents and agree with the findings and plans of care as documented above. Patient was initially accepted for transfer to [facility] for further urology care but later during the day received call from our transfer nurse stating that patient is no longer accepted to the facility. Later during the day, discussed with urology from [facility] Dr. Corbin Simmons, presented to him about patient's condition, accepted the patient for transfer. Patient's vital this time continues to be stable. His lab results including hemoglobin level continues to be stable as well. He continues to have hematuria, started continuous bladder irrigation as recommended by Dr. Simmons. Patient will be transferred to the facility once bed is available. Jorge Kasper MD
--- NOTE | 2024-09-03 13:31 | ESPR_ITS ---
RE: DEANA REBOLLAR : 1940 DATE OF SERVICE: 09/02/2024 According to the resident, the patient is doing fine. His urine is light pink and the patient is being transferred to hospital in [place]. I also explained to the resident that in future he should follow up with his original urologist, Jean Paul Ha, who did surgical procedure on him. In the meantime, he will see urologist at the hospital in [place]. DT: 09:03:50 TT: 13:30:00 Ref: [id number] - TID: [id number]
== END 2024-09-02 19:19 | disposition short-term general hospital (02) | DRG 696 ==
LOC: SERX 08-28 02:34 → SERHOLD 08-28 02:58 → S3SX 08-29 13:53 → SERHOLD 08-30 05:41
PROVIDERS: Nurse Practitioner Primary Care; Student in an Organized Health Care Education/Training Program; Admitting Provider Internal Medicine; Emergency Provider Emergency Medicine; PCP Family Medicine; Visit Provider Student in an Organized Health Care Education/Training Program
DX: R31.0 Gross hematuria (principal); G20.A1 Parkinson's disease without dyskinesia, without mention of fluctuations; C67.9 Malignant neoplasm of bladder, unspecified; N39.0 Urinary tract infection, site not specified; I10 Essential (primary) hypertension; F32.A Depression, unspecified; N40.0 Benign prostatic hyperplasia without lower urinary tract symptoms; E87.6 Hypokalemia; R74.01 Elevation of levels of liver transaminase levels; R63.0 Anorexia; B35.3 Tinea pedis; F41.9 Anxiety disorder, unspecified; R74.8 Abnormal levels of other serum enzymes; Z86.12 Personal history of poliomyelitis; Z90.79 Acquired absence of other genital organ(s); Z79.899 Other long term (current) drug therapy
CPT/HCPCS: 36415; 71045; 74176; 80053; 80069; 80074; 81001; 83036; 83605; 83690; 83735; 84100; 84145; 85025; 85610; 85730; 87040; 87086; 93225; 96361; 96365; 96375; 99285; G0378; J0696; J1200; J2060; J2270; J2543; J3475; J3480; J7030; J7050; J7120; A9270